=== PATIENT | male | born 1960 | race Caucasian/White ===

== ENCOUNTER 2018-02-05 11:31 | Emergency (ER) | payer BC, SELFPAY ==
[2018-02-05 11:31] VITALS: BP 145/82; PULSE 94; RESP 20; TEMP 36.7; O2SAT 99; BMI 22.0
--- NOTE | 2018-02-05 12:07 | ED.VISSUMM ---
- ER Visit Summary Date of Service: 02/05/18 Chief Complaint: Back pain History of Present Illness: The patient is a 57 M who presents with back pain that has been getting worse over the past 5 days. Patient states he was doing some lifting and noticed that the pain started after that. Patient denies any paresthesias or weakness. Patient states the pain does radiate to his thighs at times. Patient denies any bowel or bladder changes. Patient denies any saddle anesthesia. Patient states his pain is a constant ache but is sharp with certain movements. Patient states that his pain improves with rest. Patient has been using ice and heat with minimal relief. Patient states he has been taking ibuprofen with some relief. Physical Examination: Vital signs are stable. Patient is afebrile. Patient is in no acute distress. Musculoskeletal exam reveals tenderness over the right lumbar paraspinal muscles. There is no midline tenderness. There is no bony crepitance or step-off noted. Range of motion was limited all motions of the lumbar spine secondary to pain. Strength is 5/5 bilaterally in the lower extremities. Deep tendon reflexes are 2+/4 bilaterally. Straight leg raising produced back pain in the right lower lumbar area at approximately 30 degrees. There is no radicular pain. There is no pain with straight leg raising on the left. The remaining physical exam is within normal limits. Emergency Department Course and Treatment: Patient was given injections of Toradol and Norflex here. Patient was given prescriptions for meloxicam and Flexeril. Patient was instructed to use ice to the area. Patient was instructed to follow-up with his primary care physician in 5-7 days. Patient understood and was agreeable with the plan. All questions were answered. Disposition: Discharge home Impression: Lumbosacral strain This note was generated with [employer] dictation software. It may contain incorrect words, spelling, and punctuation that were not noted in review of the chart prior to signing ED Disposition - Plan for ED Patient: Disposition: Home or Assisted Living Chief Complaint: Back Diagnosis: Lumbosacral strain Instructions: ED Sprain Strain Lumbar Prescriptions: Cyclobenzaprine [Flexeril] 10 mg PO QHS PRN PRN #10 tab PRN Reason: Muscle Spasm Meloxicam [Mobic] 15 mg PO DAILY #10 tab Referrals: Jose Kumar MD [Primary Care Provider] -
[2018-02-05] MEDS: Ketorolac 60 MG/2 ML Vial IM (12:39)
[2018-02-05] MEDS: Orphenadrine 60 MG/2 ML Ampul IM (12:39)
[2018-02-05 13:01] VITALS: BP 140/86; PULSE 80; RESP 18; O2SAT 97
== END 2018-02-05 13:03 | disposition home or self-care (01) ==
LOC: ED 12:39
PROVIDERS: Emergency Provider Emergency Medicine; Family Provider Family Medicine; PCP Family Medicine
DX: S39.012A Strain of muscle, fascia and tendon of lower back, initial encounter (principal); I10 Essential (primary) hypertension; Z85.46 Personal history of malignant neoplasm of prostate; Z72.0 Tobacco use; Z79.899 Other long term (current) drug therapy; X50.0XXA Overexertion from strenuous movement or load, initial encounter; Y93.89 Activity, other specified; Y92.89 Other specified places as the place of occurrence of the external cause; Y99.8 Other external cause status
CPT/HCPCS: 96372; 99282

== ENCOUNTER 2018-05-30 11:04 | Emergency (ER) | payer BC, SELFPAY ==
[2018-05-30 11:05] VITALS: BP 162/80; PULSE 81; RESP 18; TEMP 36.6; O2SAT 98; BMI 22.7
--- NOTE | 2018-05-30 11:12 | ED.VIS.GEN ---
History of Present Illness Chief Complaint: Complaint Detail of Chief Complaint: Hematuria Informant: Patient, Significant Other Onset: - - 2 episodes on Tuesday. Episode on Tuesday several episodes past 24 hours with clots. He is unsure whether he is emptying his bladder completely Context: Sudden Onset Timing: Intermittent Quality: Hematuria Location: Current Severity: Moderate Maximum Severity: Moderate Worsened by: History of prostate cancer status post radiation Relieved by: Nothing Associated Symptoms: Nothing Narrative: Patient middle-aged male who presents with gross hematuria that started Tuesday. He states occasionally have 1 or 2 drops of blood, which he was told may be normal secondary to radiation therapy for prostate cancer. He denies fever, chills night sweats. Denies weight gain or weight loss. Denies dysuria, frequency, urgency. He denies any abdominal, pelvic or low back pain. He denies saddle paresthesia or anesthesia. He is on no anticoagulant. He denies bruising easily. Past Medical History - Allergies and Home Meds Allergies/Adverse Reactions: Allergies No Known Allergies Allergy (Verified 05/30/18 11:06) Primary Care Physician: Jose Kumar MD [Primary Care Provider] - Prior records reviewed: Yes Surgical History: - - Radiation prostate Lives: Spouse/ Significant Other Smoking Status: Current every day smoker Alcohol: None Drugs: None Review of Systems General: Denies: Chills, Fever, Sweats Eyes: Denies: Visual changes - bilaterally, Blurred Vision - bilaterally, Diplopia ENT: Denies: Bilateral ear pain, Rhinorrhea, Sore throat Cardiovascular: Denies: Chest pain, Palpitations Respiratory: Denies: Dyspnea, Cough, Dyspnea on exertion Gastrointestinal: Denies: Abdominal pain, Nausea, Vomiting, Diarrhea, Melena, Hematochezia Genitourinary: Reports: Hematuria. Denies: Dysuria, Frequency Musculoskeletal: Denies: Myalgias, Arthralgias, Back pain, Extremity Pain Skin: Denies: Rash, Wounds Neurological: Denies: Headache, Weakness, Numbness Hematologic: Denies: Easy bruising, Easy bleeding Physical Exam Vital Signs/Narrative: Vital Signs Temp Pulse Resp BP Pulse Ox 05/30/18 11:05 98 F 81 18 162/80 H 98 Inital Vital Signs reviewed: Yes General: Well nourished, Well developed, No Acute Distress Head: Normocephalic, Atraumatic Eyes: Perrl, EOMI. Negative for: Pale conjunctiva, Scleral icterus ENT: Moist mucous membranes, No rhinorrhea Neck: Supple, Nontender, No lymphadenopathy, No JVD Cardiovascular: Regular rate, Regular rhythm, No murmurs, Normal S1, Normal S2 Respiratory: No distress, CTA bilaterally, Chest nontender Abdomen: Soft, Nontender, Nondistended, Normal bowel sounds, No masses. Negative for: Hepatomegaly, Splenomegaly Skin: Normal color, No rash. Negative for: Cyanosis, Jaundice, Pallor Neurological: Alert, Oriented x3, Cranial nerves II-XII grossly intact, Normal Strength, Normal Sensation Psychological: Normal affect, Normal Mood Diagnostic/Tx/Re-eval - Medical Decision Making CBC was obtained to assess white count and H&H since he reports bleeding started 4 days ago. UA was obtained to evaluate for evidence of infection. Bladder scan was performed. If there is a plan of urinary bladder three-way will be placed and will initiate continuous irrigation since patient is reporting clots. Nurse informed me that bladder scan revealed 250 cc of urine. Will check post void residual. If able to void will not need placement of catheter. ED Disposition - Plan for ED Patient: Disposition: Home or Assisted Living Diagnosis: Asymptomatic microscopic hematuria, History of prostate cancer Instructions: ED Hematuria Referrals: Jose Kumar MD [Primary Care Provider] - Additional Instructions: Follow-up with your urologist Dr. Jn Mcgowan
[2018-05-30 11:34] LABS: Absolute Lymphocyte Count 1.98 X10^3/ul (0.83-4.51); Absolute Neutrophil Count 6.3 X10^3/uL (2.0-7.7); Basophil# 0.03 X10^3/uL; Basophil% 0.3 % (0-1); Eosinophils% 3.1 % (0-5); Hematocrit 43.7 % (40-54); Hemoglobin 14.9 g/dl (13.0-16.5); Lymphocyte # 1.98 X10^3/ul (4.0); Lymphocyte % 20.4 % (19-41); Mean Corp Hgb Conc 34.1 g/gl (32-36); Mean Corpuscular Volume 96.7 fL (80-94); Mean Platelet Vol. 10.9 fl (6.2-12.0); Monocyte# 1.13 X10^3/uL; Monocyte% 11.6 % (0-10); Neutrophil # 6.25 X10^3/uL (2.7-7.7); Neutrophil % 64.5 % (47-70); POSITIVE COUNT NO; POSITIVE DIFFERENTIAL NO; POSITIVE MORPHOLOGY NO; Platelet Count 213 K/mm3 (150-450); RBC Distribution Width CV 13.6 % (11.6-14.6); RBC Distribution Width SD 47.3 fl (35.1-43.9); Red Blood Count 4.52 M/mm3 (4.6-6.2); White Blood Count 9.7 K/mm3 (4.4-11.0)
[2018-05-30 12:17] LABS: Mucous, Urine 0 SEEN /hpf (<or=2+); Squamous Epithelial Cells - UA 0 SEEN /hpf (0-5); White Blood Cells 0 SEEN /hpf (0-5)
[2018-05-30 12:25] LABS: Glucose, Dipstick Normal (Normal); Ketone-Dipstick Negative (Negative); Leukocyte Esterase-Dipstick Negative /ul (Negative); Nitrite-Dipstick Negative (Negative); Occult Blood-Urine 250 /ul (Negative); Protein-Dipstick 30 mg/dl (Negative); Urine Bilirubin Dipstick Negative (Negative); Urine Clarity Sl. Cloudy (Clear); Urine Urobilinogen Normal (Normal)
[2018-05-30 12:30] LABS: Color, Urine SEE COMMENT BELOW (Yellow)
[2018-05-30 12:48] LABS: Bacteria RARE /hpf (None Seen); Red Blood Cells-Urine 5-10 SEEN /hpf (0-5)
[2018-05-30 13:07] VITALS: RESP 18
[2018-05-30 14:15] VITALS: BP 143/83; PULSE 72; RESP 16; O2SAT 96
== END 2018-05-30 14:16 | disposition home or self-care (01) ==
PROVIDERS: Emergency Provider Emergency Medicine; Family Provider Family Medicine; PCP Family Medicine
DX: R31.21 Asymptomatic microscopic hematuria (principal); Z85.46 Personal history of malignant neoplasm of prostate; F17.200 Nicotine dependence, unspecified, uncomplicated; Z79.899 Other long term (current) drug therapy
CPT/HCPCS: 81001; 85025; 99283

== ENCOUNTER 2018-08-17 09:02 | Emergency (ER) | payer BC, SELFPAY ==
[2018-08-17 09:03] VITALS: BP 157/89; PULSE 92; RESP 18; TEMP 36.6; O2SAT 99; BMI 21.9
--- NOTE | 2018-08-17 09:18 | ED.DCSUM_ITS ---
History of Present Illness Chief Complaint: Complaint Detail of Chief Complaint: Gross hematuria with clots Informant: Patient Onset: Yesterday Context: Sudden Onset Timing: Continuous Quality: Gross hematuria with clots Location: Not applicable Current Severity: Moderate Maximum Severity: Moderate Worsened by: Radiation cystitis Relieved by: Nothing Associated Symptoms: Nausea and central low back pain Narrative: Patient is a 58-year-old male who was seen May 2018 for hematuria. He underwent surgery at [facility] July 18. He was found to have radiation cystitis. Patient reports no problems post surgery until yesterday. Recommendation was hyperbaric treatment. He is making arrangements to get hyperbaric treatment. Patient denies fever, chills night sweats. He is on no antiplatelet or anticoagulant. He has no other complaints. Prior similar symptoms: Yes Recent Illness/Hospitalization: Yes - Past Medical History (1) Chronic radiation cystitis Status: Chronic (2) History of prostate cancer Status: Resolved Past Medical History - Allergies and Home Meds Allergies/Adverse Reactions: Allergies No Known Allergies Allergy (Verified 08/17/18 09:05) Primary Care Physician: Jose Kumar MD [Primary Care Provider] - Prior records reviewed: Yes Surgical History: - - Radiation prostate Lives: Spouse/ Significant Other Smoking Status: Current every day smoker Drugs: None Review of Systems General: Denies: Chills, Fever, Malaise, Subjective, Sweats, Weight loss Cardiovascular: Denies: Chest pain, Palpitations Respiratory: Denies: Dyspnea, Cough, Dyspnea on exertion Gastrointestinal: Denies: Abdominal pain, Nausea, Vomiting, Diarrhea, Melena, Hematochezia Genitourinary: Reports: Hematuria, Frequency. Denies: Dysuria Musculoskeletal: Reports: Back pain. Denies: Myalgias, Arthralgias, Neck pain, Swelling, Extremity Pain, -, - Skin: Denies: Rash, Wounds Hematologic: Denies: Easy bruising, Easy bleeding Physical Exam Vital Signs/Narrative: Vital Signs Temp Pulse Resp BP Pulse Ox 08/17/18 09:03 97.9 F 92 18 157/89 H 99 General: Well nourished, Well developed, No Acute Distress Head: Normocephalic, Atraumatic Eyes: Perrl, EOMI. Negative for: Pale conjunctiva, Scleral icterus, - ENT: Moist mucous membranes, No rhinorrhea Neck: Supple, Nontender Cardiovascular: Regular rate, Regular rhythm, No murmurs, Normal S1, Normal S2 Respiratory: No distress, CTA bilaterally, Chest nontender Abdomen: Soft, Nontender, Nondistended, Normal bowel sounds, No masses Rectal: Deferred Back: Nontender, Normal Inspection. Negative for: CVA tenderness Extremities: Nontender, No edema Skin: Normal color, No rash, No Trauma. Negative for: Cyanosis, Diaphoresis, Jaundice Neurological: Alert, Oriented x3, Cranial nerves II-XII grossly intact, Normal Strength, Normal Sensation, Normal Gait Psychological: Normal affect, Normal Mood Diagnostic/Tx/Re-eval Laboratory Results 08/17/18 08/17/18 09:45 09:45 WBC 8.4 RBC 4.57 L Hgb 15.0 Hct 43.0 MCV 94.1 H MCH 32.8 H MCHC 34.9 RDW 13.5 RDW Differential 44.8 H Plt Count 202 MPV 10.8 Sodium 141 Potassium 3.7 Chloride 108 H Carbon Dioxide 25.0 Anion Gap 8 BUN 7 Creatinine 0.84 Estim Creat Clear Calc 85.05 Est GFR (MDRD) Af Amer 120 Est GFR (MDRD) Non-Af 100 BUN/Creatinine Ratio 8.3 L Glucose 169 H Calcium 8.6 - Medical Decision Making With history of radiation cystitis and gross hematuria with clots three-way was placed for irrigation. Will obtain CBC to assess H&H compared to prior and BMP to evaluate renal function. Will contact his urologist at [facility] once lab results have returned and reviewed as well as results of irrigation. After 1.5 of 3 L irrigant urine is slightly tinged red. Will contact his urologist to determine if he would like [place] to remain in place or discharge since there was no urinary retention. And when he would like patient to follow- up. Patient urologist did not return call, Dr. Mcgowan. She was informed by recommendation is to leave Liz[place] in since he has bright red blood again. Patient wishes to have it removed. He understands he may return and require reinsertion and understands risk benefits. ED Disposition - Plan for ED Patient: Disposition: Home or Assisted Living Diagnosis: Hematuria, gross, Chronic radiation cystitis Instructions: ED Hematuria Referrals: Jose Kumar MD [Primary Care Provider] - Additional Instructions: Call your urologist for follow-up.
[2018-08-17 09:54] LABS: Mean Corp Hgb Conc 34.9 g/gl (32-36); Mean Corpuscular Hgb 32.8 pg (27.0-32.0); Mean Corpuscular Volume 94.1 fL (80-94); Mean Platelet Vol. 10.8 fl (6.2-12.0); Platelet Count 202 K/mm3 (150-450); RBC Distribution Width CV 13.5 % (11.6-14.6); RBC Distribution Width SD 44.8 fl (35.1-43.9); Red Blood Count 4.57 M/mm3 (4.6-6.2); White Blood Count 8.4 K/mm3 (4.4-11.0)
[2018-08-17 09:58] LABS: Scan Indicated on CBC? Y/N NO
[2018-08-17 10:08] LABS: Anion Gap 8 (5-15); BUN 7 mg/dL (7-18); BUN/Creat Ratio 8.3 RATIO (10-20); Calcium,Total 8.6 mg/dL (8.5-10.1); Chloride 108 mmol/L (98-107); Creatinine, Serum 0.84 mg/dL (0.70-1.30); EST Glomerular Filtration Rate 100 mL/min (>60); Est Glom Filt Rate - Afr Amer 120 mL/min (>60); Estimated Creatinine Clearance 85.05 ml/min; Glucose 169 mg/dL (74-106); Potassium 3.7 mmol/L (3.5-5.1); Sodium Level 141 mmol/L (136-145)
[2018-08-17] MEDS: Lidocaine Jelly 2% 20 ML Syringe (URO-JET) 20 APPLIC TOPICAL (10:12)
[2018-08-17 15:00] VITALS: BP 139/81; PULSE 86; RESP 16; O2SAT 96
== END 2018-08-17 15:01 | disposition home or self-care (01) ==
PROVIDERS: Emergency Provider Emergency Medicine; Family Provider Family Medicine; PCP Family Medicine
DX: N30.41 Irradiation cystitis with hematuria (principal); Z85.46 Personal history of malignant neoplasm of prostate; F17.200 Nicotine dependence, unspecified, uncomplicated
CPT/HCPCS: 51702; 80048; 85027; 99284; A4216

== ENCOUNTER 2018-09-28 15:23 | Outpatient (RCR) | payer BC, SELFPAY ==
[2018-09-28 16:10] VITALS: BP 154/88; PULSE 62; RESP 16; TEMP 37.3; BMI 21.9
--- NOTE | 2018-09-28 16:55 | HBO.CON.PC_ITS ---
(1) Irradiation cystitis with hematuria Status: Chronic Code(s): N30.41 - Irradiation cystitis with hematuria (2) Chronic radiation cystitis Status: Chronic Code(s): N30.40 - Irradiation cystitis without hematuria (3) Hypertension Status: Chronic Code(s): I10 - Essential (primary) hypertension (4) History of prostate cancer Status: Resolved Code(s): Z85.46 - Personal history of malignant neoplasm of prostate History of Present Illness Date of Service: 09/28/18 Presenting Chief Complaint: Chronic radiation cystitis The patient is a 58 year old M who presents to the [facility] to evaluate the possibility of initiating hyperbaric oxygen therapy for treatment of chronic radiation cystitis. Patient has a past medical history that is significant for radiation cystitis, radical prostatectomy, and hypertension. Regarding patient's hypertension, patient states it is well controlled on metoprolol and amlodipine. Patient states he has no symptoms of hypo-or hypertension. Regarding patient's radiation cystitis, he was diagnosed in July 2017 by his urologist who recommended HBO therapy. In August 2018 he was seen in the ER for blood in his urine and urinary frequency. Regarding patient's radical prostatectomy, patient had a radical prostatectomy in 2013 and 39 rounds of radiation treatments in 2014 and had no chemotherapy treatments. Radiation was done by Dr. Thomas. Patient states that he currently smokes 1 pack/day and has a 12-mbks-hugu history. Patient states he has not had a recent chest x-ray, but he denies any breathing difficulties at this time in any history of COPD or asthma. Patient's primary care is Dr. Kumar. Patient was originally seen for an HBO consult at [facility] and he states is insurance approved him for 20 HBO treatments. Patient decided to try [facility] because it is closer to his home and would work better with his work schedule. Patient states he does not have any open wounds at this time. Patient denies any current symptoms. Denies blood in the urine, urinary frequency, abdominal pain, shortness of breath, chest pain, fatigue, nausea, vomiting, syncope or near syncopal episodes, and fever or chills. Some records were not available for review, so information provided above is per patient [] Past Medical History Chronic Problems Chronic radiation cystitis (Chronic) Hypertension (Chronic) Irradiation cystitis with hematuria (Chronic) Allergies/Adverse Reactions: Allergies No Known Allergies Allergy (Verified 08/17/18 09:05) Home Medications: Ambulatory Orders Medication Instructions Recorded Amlodipine [Norvasc] 10 mg PO DAILY 02/08/16 Metoprolol Succinate 50 mg PO DAILY 02/08/16 Lives: Spouse/ Significant Other Smoking Status: Heavy Smoker (>10/day) Review of Systems Constitutional: Denies: Chills, Fever, Weight Change Eyes: Denies: Pain, Vision Change HEENT: Denies: Difficulty Hearing, Difficulty Swallowing, Sinus Congestion Cardiovascular: Denies: Chest Pain, Palpitations Respiratory: Denies: Cough, Shortness of Breath Gastrointestinal: Denies: Diarrhea, Nausea, Vomiting Genitourinary: Reports: Frequency, Hematuria - History of hematuria, not currently experiencing. Denies: Dysuria Endocrine: Denies: Heat/ Cold Intolerance, Polydipsia, Polyuria Hematologic/ Lymphatic: Denies: Easy Bruising, Easy Bleeding - Physical Exam Vital Signs Temp Pulse Resp BP 99.1 F 62 16 154/88 H 09/28/18 16:10 09/28/18 16:10 09/28/18 16:10 09/28/18 16:10 General: Alert, Oriented x3, Cooperative, No apparent distress HEENT: Atraumatic, PERRLA, EOMI, Normocephalic, TM's Clear Oral: Moist Mucosa Neck: Supple, No JVD, Negative Carotid Bruits Lungs: Clear to auscultation, Normal air movement, No rhonchi, No wheeze, No rales Cardiovascular: Regular rate, Regular Rhythm, No murmurs Abdomen: Soft, Non Tender Extremities: No clubbing, No cyanosis, No edema, Capillary Refill Less than 3 Seconds Skin: No rashes, No breakdown Musculoskeletal: No Tenderness to Palpation of Joints or Extremities, No Muscle Wasting Lymphatic: No Cervical, Supraclavicular, or Inguinal Adenopathy Neurological: Neuro grossly intact Psych/Mental Status: Normal Affect, Appropriate, Alert and oriented to time, place, person, mood and affect Assessment/Plan EMBER WILSON is an appropriate candidate for hyperbaric oxygen therapy. Hyperbaric Oxygen Therapy would be an essential adjunct in the resolution and treatment of this patient's presenting problem. This patient has sufficient physiologic and psychological stamina to undergo the rigors of hyperbaric oxygen therapy. As such, I recommend the following: Hyperbaric Oxygen Treatments at 2.0 SMITA in 100% Oxygen for 90 minutes per treatment, for 40 treatments. I have discussed the possible benefits of hyperbaric oxygen therapy with this patient. I have also presented and described the risks, including: air gas embolism, pneumothorax, central nervous system and pulmonary oxygen toxicity, flash pulmonary edema, hypoglycemia, reversible visual refractive changes, ear and sinus se-trauma, and confinement anxiety. The patient has verbalized understanding of these risks, and is still wanting to undergo hyperbaric oxygen therapy. The patient understands the significant time and transportation commitment involved in daily treatments of up to two hours duration and has stated that they are willing to commit to this therapy. Some records were not available for review at this time. Will request records from his primary care provider and his urologist. We will also obtain chest x- ray and EKG prior to initiating HBO therapy. - HBOT Diagnosis - - Irradiation cystitis with hematuria N30.41 Code Visit Office Visits / Consults: [id number] OV L4 Est
== END 2018-10-11 23:59 ==
LOC: WC 15:23
PROVIDERS: Family Provider Family Medicine; PCP Family Medicine; Visit Provider Nurse Practitioner Family
DX: N30.41 Irradiation cystitis with hematuria (principal); Y84.2 Radiological procedure and radiotherapy as the cause of abnormal reaction of the patient, or of later complication, without mention of misadventure at the time of the procedure; I10 Essential (primary) hypertension; Z85.46 Personal history of malignant neoplasm of prostate; Z79.899 Other long term (current) drug therapy; F17.200 Nicotine dependence, unspecified, uncomplicated
CPT/HCPCS: 99202; G0463

== ENCOUNTER → 2018-10-02 | Outpatient (CLI) | payer BC, SELFPAY ==
[2018-09-28 16:10] VITALS: BMI 21.9
--- NOTE | 2018-10-02 16:14 | RAD_ITS ---
STUDY: X-RAY CHEST REASON FOR EXAM: Male, 58 years old. Prostate cancer, bladder surgery TECHNIQUE: Two view of the chest was performed COMPARISON: None. FINDINGS: The lungs are hyperinflated. There is asymmetric density in the right hilum and infrahilar region. There is no pneumothorax, pulmonary edema, cardiomegaly or pleural effusions. There is pectus excavatum. Otherwise osseous structures are intact. RAD/Chest PA and Lateral IMPRESSION: 1. Right perihilar asymmetric opacity, possibly related to pectus excavatum and the spinal soft tissue redistribution. 2. Mild emphysema. 3. If cancer staging of the chest is desired CT of the chest is the study of choice. Plain films are insufficient modality for cancer staging. Electronically Signed: Cata Abarca, at 18:15 EDT Tel , Service support ,
--- NOTE | 2018-10-02 16:15 | EKG12_ITS ---
Test Reason : HYPERBARIC Blood Pressure : / mmHG Vent. Rate : 071 BPM Atrial Rate : 071 BPM P-R Int : 162 ms QRS Dur : 082 ms QT Int : 412 ms P-R-T Axes : 077 052 072 degrees QTc Int : 447 ms Normal sinus rhythm Possible Left atrial enlargement Borderline ECG Confirmed by CECILIA WILEY, CHE ([id number]), editor producer JED CASTELLANOS ([id number]) on 10/03/2018 1:49:10 PM Referred By: Jose Cartwright Confirmed By:CHE BROOKS MD
== END | disposition home or self-care (01) ==
LOC: RAD 16:13
PROVIDERS: Family Provider Family Medicine; PCP Family Medicine; Referring Provider Nurse Practitioner Family; Visit Provider Nurse Practitioner Family
DX: N30.40 Irradiation cystitis without hematuria (principal)
CPT/HCPCS: 71046; 93005

== ENCOUNTER 2018-12-11 14:15 | Outpatient (RCR) | payer BC, SELFPAY ==
[2018-12-05 16:34] VITALS: BP 150/82; BP 152/79; PULSE 70; PULSE 73; RESP 16; TEMP 37.1; TEMP 37.2
--- NOTE | 2018-12-05 16:47 | PCM.HBO.PN ---
History of Present Illness Date of Service: 12/05/18 Presenting Chief Complaint: Chronic radiation cystitis EMBER WILSON is a 58 year old currently undergoing hyperbaric oxygen therapy for chronic radiation cystitis. Progress: Today's session of hyperbaric oxygen therapy represents the patient's first such session of a planned 40 sessions. Tolerance of hyperbaric oxygen therapy: Hyperbaric oxygen therapy was administered per our facility's protocol. Patient tolerated hyperbaric oxygen therapy well, without complaints or complications. He did experience mild discomfort in his left ear initially while going to depth, which quickly and subsequently solved, and presented no further problems. Upon emergence from the hyperbaric chamber, the patient's vital signs remained stable. He was discharged in good condition. Examination of the patient's tympanic membranes otoscopic William, revealed slight erythema involving the left tympanic membrane. Hyperbaric oxygen therapy was administered at 2 steph for a total of 90 minutes. Past Medical History Chronic Problems Chronic radiation cystitis (Chronic) Hypertension (Chronic) Irradiation cystitis with hematuria (Chronic) Allergies/Adverse Reactions: Allergies No Known Allergies Allergy (Verified 08/17/18 09:05) Home Medications: Ambulatory Orders Medication Instructions Recorded Amlodipine [Norvasc] 10 mg PO DAILY 02/08/16 Metoprolol Succinate 50 mg PO DAILY 02/08/16 Smoking Status: Heavy Smoker (>10/day) Physical Exam Vital Signs Temp Pulse Resp BP 98.7 F 73 16 152/79 H 12/05/18 16:34 12/05/18 16:34 12/05/18 16:34 12/05/18 16:34 General: Alert, Oriented x3, Cooperative, No apparent distress, Well developed, Well nourished HEENT: Atraumatic, PERRLA, EOMI, Normocephalic Lungs: Normal air movement Psych/Mental Status: Normal Affect, Appropriate, Alert and oriented to time, place, person, mood and affect Assessment/Plan The patient appeared to tolerate hyperbaric oxygen therapy well, but for a very transient episode of left ear barotrauma. The patient appeared to accommodate to the barotrauma well, though his left tympanic membrane was slightly erythematous following treatment. Patient is to return for his second such hyperbaric oxygen therapy session in 48 hours. If additional barotrauma is encountered, it is likely that the patient will be referred for evaluation by the ENT service for possible tube placement.
[2018-12-07 14:58] VITALS: BP 138/85; BP 147/88; PULSE 80; PULSE 88; RESP 18; TEMP 37.1; TEMP 37.2
--- NOTE | 2018-12-07 17:15 | PCM.HBO.PN ---
History of Present Illness Date of Service: 12/07/18 Presenting Chief Complaint: Chronic radiation cystitis EMBER WILSON is a 58 year old currently undergoing hyperbaric oxygen therapy for chronic radiation cystitis. Progress: Today's session of hyperbaric oxygen therapy represents the patient's 2nd such session of a planned 40 sessions. Tolerance of hyperbaric oxygen therapy: Hyperbaric oxygen therapy was administered per our facility's protocol. Patient tolerated hyperbaric oxygen therapy well, without complaints or complications. He did experience mild discomfort in his left ear at last visit, however, no discomfort today. Upon emergence from the hyperbaric chamber, the patient's vital signs remained stable. He was discharged in good condition. Examination of the patient's tympanic membranes revealed slight erythema involving the left tympanic membrane. Hyperbaric oxygen therapy was administered at 2 steph for a total of 90 minutes. Past Medical History Chronic Problems Chronic radiation cystitis (Chronic) Hypertension (Chronic) Irradiation cystitis with hematuria (Chronic) Allergies/Adverse Reactions: Allergies No Known Allergies Allergy (Verified 08/17/18 09:05) Home Medications: Ambulatory Orders Medication Instructions Recorded Amlodipine [Norvasc] 10 mg PO DAILY 02/08/16 Metoprolol Succinate 50 mg PO DAILY 02/08/16 Smoking Status: Heavy Smoker (>10/day) Physical Exam Vital Signs Temp Pulse Resp BP 99.0 F 80 18 138/85 H 12/07/18 14:58 12/07/18 14:58 12/07/18 14:58 12/07/18 14:58 General: Alert, Oriented x3, Cooperative, No apparent distress HEENT: Atraumatic, PERRLA, Normocephalic, TM's Clear, EAC Clear, - - slight erythema to left tm, intact no bulging Lungs: Clear to auscultation, Normal air movement Cardiovascular: Regular rate, Regular Rhythm, Normal S1, Normal S2, No murmurs Psych/Mental Status: Normal Affect, Appropriate, Alert and oriented to time, place, person, mood and affect Assessment/Plan The patient appeared to tolerate hyperbaric oxygen therapy well today. Given his ear discomfort at his last HBO session, and the mild erythema present instructed patient on the use of NSAIDs and Flonase. Patient did tolerate HBO therapy well today. He will continue with his scheduled HBO treatments per his initial plan of care.
[2018-12-08 14:40] VITALS: BP 147/77; BP 150/78; PULSE 68; PULSE 84; RESP 18; TEMP 36.8; TEMP 37.5
--- NOTE | 2018-12-08 16:26 | PCM.HBO.PN ---
History of Present Illness Date of Service: 12/08/18 Presenting Chief Complaint: Chronic radiation cystitis EMBER WILSON is a 58 year old currently undergoing hyperbaric oxygen therapy for chronic radiation cystitis. Progress: Today's session of hyperbaric oxygen therapy represents the patient's 3rd such session of a planned 40 sessions. Tolerance of hyperbaric oxygen therapy: Hyperbaric oxygen therapy was administered per our facility's protocol. Patient tolerated hyperbaric oxygen therapy well, without complaints or complications. Upon emergence from the hyperbaric chamber, the patient's vital signs remained stable. He was discharged in good condition. Examination of the patient's tympanic membranes revealed slight erythema involving the left tympanic membrane. Hyperbaric oxygen therapy was administered at 2 steph for a total of 90 minutes. Past Medical History Chronic Problems Chronic radiation cystitis (Chronic) Hypertension (Chronic) Irradiation cystitis with hematuria (Chronic) Allergies/Adverse Reactions: Allergies No Known Allergies Allergy (Verified 08/17/18 09:05) Home Medications: Ambulatory Orders Medication Instructions Recorded Amlodipine [Norvasc] 10 mg PO DAILY 02/08/16 Metoprolol Succinate 50 mg PO DAILY 02/08/16 Lives: Spouse/ Significant Other Smoking Status: Heavy Smoker (>10/day) Tobacco Use: Cigarettes Alcohol: Occasional Drugs: None Physical Exam Vital Signs Temp Pulse Resp BP 99.5 F H 84 18 150/78 H 12/08/18 14:40 12/08/18 14:40 12/08/18 14:40 12/08/18 14:40 General: Alert, Oriented x3, Cooperative, No apparent distress Psych/Mental Status: Normal Affect, Appropriate Assessment/Plan Active Problems Chronic radiation cystitis (Chronic) Irradiation cystitis with hematuria (Chronic) The patient appeared to tolerate hyperbaric oxygen therapy well today. He has been using NSAIDs and Flonase and antihistamine. Patient did tolerate HBO therapy well today. He will continue with his scheduled HBO treatments per his initial plan of care.
[2018-12-11 15:51] VITALS: BP 144/78; BP 168/88; PULSE 72; PULSE 77; RESP 18; TEMP 36.6; TEMP 37.5
--- NOTE | 2018-12-11 16:35 | PCM.HBO.PN ---
History of Present Illness Date of Service: 12/11/18 Presenting Chief Complaint: Chronic radiation cystitis EMBER WILSON is a 58 year old male currently undergoing hyperbaric oxygen therapy for chronic radiation cystitis. Progress: Today's session of hyperbaric oxygen therapy represents the patient's 4th such session of a planned 40 sessions. Tolerance of hyperbaric oxygen therapy: Hyperbaric oxygen therapy was administered per our facility's protocol. Patient tolerated hyperbaric oxygen therapy well, without complaints or complications. Upon emergence from the hyperbaric chamber, the patient's vital signs remained stable. He was discharged in good condition. Today's treatment was administered at 2 steph for a total of 120 minutes. Past Medical History Chronic Problems Chronic radiation cystitis (Chronic) Hypertension (Chronic) Irradiation cystitis with hematuria (Chronic) Allergies/Adverse Reactions: Allergies No Known Allergies Allergy (Verified 08/17/18 09:05) Home Medications: Ambulatory Orders Medication Instructions Recorded Amlodipine [Norvasc] 10 mg PO DAILY 02/08/16 Metoprolol Succinate 50 mg PO DAILY 02/08/16 Lives: Spouse/ Significant Other Smoking Status: Heavy Smoker (>10/day) Tobacco Use: Cigarettes Alcohol: Occasional Drugs: None Physical Exam Vital Signs Temp Pulse Resp BP 99.5 F H 77 18 144/78 H 12/11/18 15:51 12/11/18 15:51 12/11/18 15:51 12/11/18 15:51 General: Alert, Oriented x3, Cooperative, No apparent distress, Well developed, Well nourished HEENT: Atraumatic, PERRLA, EOMI, Normocephalic Lungs: Normal air movement Psych/Mental Status: Normal Affect, Appropriate, Alert and oriented to time, place, person, mood and affect Assessment/Plan The patient appears to be tolerating hyperbaric oxygen therapy well, which will be continued as per the patient's medical plan.
== END 2018-12-11 23:59 ==
LOC: WC 14:15
PROVIDERS: Family Provider Family Medicine; PCP Family Medicine; Visit Provider Surgery
DX: N30.41 Irradiation cystitis with hematuria (principal); Y84.2 Radiological procedure and radiotherapy as the cause of abnormal reaction of the patient, or of later complication, without mention of misadventure at the time of the procedure; I10 Essential (primary) hypertension; Z79.899 Other long term (current) drug therapy; F17.210 Nicotine dependence, cigarettes, uncomplicated
CPT/HCPCS: 99183; G0277

== ENCOUNTER 2018-12-27 10:58 | Emergency (ER) | payer BC, SELFPAY ==
[2018-12-27 11:00] VITALS: BP 159/79; PULSE 84; RESP 16; TEMP 36.4; O2SAT 98; BMI 22.6
[2018-12-27 12:15] VITALS: BP 144/80
--- NOTE | 2018-12-27 12:19 | ED.VISSUMM ---
- ER Visit Summary Date of Service: 12/27/18 Chief Complaint: Hypertension History of Present Illness: The patient is a 58 M who presents today for hypertension. His blood pressure was checked at work and it was 172/97. He says he has a history of high blood pressure and takes metoprolol and amlodipine regularly. He denies new dosages, missing dosages, or other complaints issues. He felt slightly lightheaded but otherwise has no symptoms. He does attend hyperbaric therapy for radiation cystitis. He says his blood pressure gets checked daily. His blood pressure typically runs as high as 150/190. Physical Examination: Afebrile and vital signs unremarkable. Blood pressure 159/79. HEENT exam unremarkable. Cranial nerves grossly intact. Normal strength and sensation grossly. Heart regular. Lungs clear. Test Results: None performed Emergency Department Course and Treatment: Repeat blood pressure was 144/80. No indication at this point to perform any diagnostic testing. He has no objective normal findings, and he reports lightheadedness which has resolved. Patient was advised that blood pressure can fluctuate throughout the day. He should have his blood pressure rechecked by his physician who may change his regimen. There is no indication to increase his medication at this point, risks were discussed. Treatment Plan: As above Disposition: Discharge Impression: 1. Hypertension established This note was generated with [employer] dictation software. It may contain incorrect words, spelling, and punctuation that were not noted in review of the chart prior to signing ED Disposition - Plan for ED Patient: Referrals: Jose Kumar MD [Primary Care Provider] -
--- NOTE | 2018-12-27 12:22 | ED.DEP ---
ED Disposition - Plan for ED Patient: Instructions: HYPERTENSION, Established Referrals: Jose Kumar MD [Primary Care Provider] -
[2018-12-27 12:35] VITALS: BP 144/80; PULSE 72; RESP 16; O2SAT 97
== END 2018-12-27 12:35 | disposition home or self-care (01) ==
LOC: ED 11:36
PROVIDERS: Emergency Provider Emergency Medicine; Family Provider Family Medicine; PCP Family Medicine
DX: I10 Essential (primary) hypertension (principal); Z85.46 Personal history of malignant neoplasm of prostate; Z72.0 Tobacco use; Z79.899 Other long term (current) drug therapy
CPT/HCPCS: 99282

== ENCOUNTER 2019-01-11 14:15 | Outpatient (RCR) | payer BC, SELFPAY ==
[2018-12-12 01:18] VITALS: BP 168/88; PULSE 72; RESP 18; TEMP 36.6
--- NOTE | 2018-12-12 14:39 | PCM.HBO.PN ---
History of Present Illness Date of Service: 12/12/18 Presenting Chief Complaint: Chronic radiation cystitis EMBER WILSON is a 58 year old male currently undergoing hyperbaric oxygen therapy for chronic radiation cystitis. Progress: Today's session of hyperbaric oxygen therapy represents the patient's 5th such session of a planned 40 sessions. Tolerance of hyperbaric oxygen therapy: Hyperbaric oxygen therapy was administered per our facility's protocol. Patient tolerated hyperbaric oxygen therapy well, without complaints or complications. Upon emergence from the hyperbaric chamber, the patient's vital signs remained stable. He was discharged in good condition. Today's treatment was administered at 2 steph for a total of 120 minutes. Past Medical History Chronic Problems Chronic radiation cystitis (Chronic) Hypertension (Chronic) Irradiation cystitis with hematuria (Chronic) Allergies/Adverse Reactions: Allergies No Known Allergies Allergy (Verified 08/17/18 09:05) Home Medications: Ambulatory Orders Medication Instructions Recorded Amlodipine [Norvasc] 10 mg PO DAILY 02/08/16 Metoprolol Succinate 50 mg PO DAILY 02/08/16 Smoking Status: Heavy Smoker (>10/day) Tobacco Use: Cigarettes Physical Exam Vital Signs Temp Pulse Resp BP 97.8 F 72 18 168/88 H 12/12/18 01:18 12/12/18 01:18 12/12/18 01:18 12/12/18 01:18 General: Alert, Oriented x3, Cooperative, No apparent distress HEENT: TM's Clear - right with small amount dark colored drainage, left slightly injected Lungs: Clear to auscultation, Normal air movement Cardiovascular: Regular rate, Regular Rhythm Psych/Mental Status: Normal Affect, Appropriate, Alert and oriented to time, place, person, mood and affect Assessment/Plan The patient appears to be tolerating hyperbaric oxygen therapy well, which will be continued as per the patient's medical plan.
[2018-12-12 15:09] VITALS: BP 138/81; PULSE 83; RESP 18; TEMP 37.4
[2018-12-13 14:48] VITALS: BP 151/79; PULSE 83; RESP 18; TEMP 37.2
--- NOTE | 2018-12-13 15:07 | PCM.HBO.PN ---
History of Present Illness Date of Service: 12/13/18 Presenting Chief Complaint: Chronic radiation cystitis EMBER WILSON is a 58 year old male currently undergoing hyperbaric oxygen therapy for chronic radiation cystitis. Progress: Today's session of hyperbaric oxygen therapy represents the patient's 6th such session of a planned 40 sessions. Tolerance of hyperbaric oxygen therapy: Hyperbaric oxygen therapy was administered per our facility's protocol. Patient tolerated hyperbaric oxygen therapy well, without complaints or complications. Upon emergence from the hyperbaric chamber, the patient's vital signs remained stable. He was discharged in good condition. Today's treatment was administered at 2 steph for a total of 120 minutes. Past Medical History Chronic Problems Chronic radiation cystitis (Chronic) Hypertension (Chronic) Irradiation cystitis with hematuria (Chronic) Allergies/Adverse Reactions: Allergies No Known Allergies Allergy (Verified 08/17/18 09:05) Home Medications: Ambulatory Orders Medication Instructions Recorded Amlodipine [Norvasc] 10 mg PO DAILY 02/08/16 Metoprolol Succinate 50 mg PO DAILY 02/08/16 Smoking Status: Heavy Smoker (>10/day) Tobacco Use: Cigarettes Physical Exam Vital Signs Temp Pulse Resp BP 98.9 F 83 18 151/79 H 12/13/18 14:48 12/13/18 14:48 12/13/18 14:48 12/13/18 14:48 General: Alert, Oriented x3, Cooperative, No apparent distress HEENT: Atraumatic, TM's Clear - small amount of rust colored cerumen right ear, left TM injected but non-painful Lungs: Clear to auscultation, Normal air movement Cardiovascular: Regular rate, Regular Rhythm Psych/Mental Status: Normal Affect, Appropriate, Alert and oriented to time, place, person, mood and affect Assessment/Plan The patient appears to be tolerating hyperbaric oxygen therapy well, which will be continued as per the patient's medical plan.
[2018-12-13 16:36] VITALS: BP 147/86; PULSE 68; RESP 18; TEMP 36.8
[2018-12-15 14:32] VITALS: BP 140/85; BP 149/80; PULSE 62; PULSE 85; RESP 18; TEMP 36.6; TEMP 36.9
--- NOTE | 2018-12-15 18:52 | PCM.HBO.PN ---
History of Present Illness Date of Service: 12/15/18 Presenting Chief Complaint: Chronic radiation cystitis EMBER WILSON is a 58 year old male currently undergoing hyperbaric oxygen therapy for chronic radiation cystitis. Progress: Today's session of hyperbaric oxygen therapy represents the patient's 7th such session of a planned 40 sessions. Tolerance of hyperbaric oxygen therapy: Hyperbaric oxygen therapy was administered per our facility's protocol. Patient tolerated hyperbaric oxygen therapy well, without complaints or complications. Upon emergence from the hyperbaric chamber, the patient's vital signs remained stable. He was discharged in good condition. Today's treatment was administered at 2 steph for a total of 120 minutes. He had tympanostomy tubes placed yesterday and they are open and intact today on exam pre and post treatment. Past Medical History Chronic Problems Chronic radiation cystitis (Chronic) Hypertension (Chronic) Irradiation cystitis with hematuria (Chronic) Allergies/Adverse Reactions: Allergies No Known Allergies Allergy (Verified 08/17/18 09:05) Home Medications: Ambulatory Orders Medication Instructions Recorded Amlodipine [Norvasc] 10 mg PO DAILY 02/08/16 Metoprolol Succinate 50 mg PO DAILY 02/08/16 Smoking Status: Heavy Smoker (>10/day) Tobacco Use: Cigarettes Alcohol: None Drugs: None Physical Exam Vital Signs Temp Pulse Resp BP 98.4 F 85 18 149/80 H 12/15/18 14:32 12/15/18 14:32 12/15/18 14:32 12/15/18 14:32 General: Alert, Oriented x3, Cooperative, No apparent distress Psych/Mental Status: Normal Affect, Appropriate Assessment/Plan Active Problems Chronic radiation cystitis (Chronic) Irradiation cystitis with hematuria (Chronic) The patient appears to be tolerating hyperbaric oxygen therapy well, which will be continued as per the patient's medical plan.
--- NOTE | 2018-12-18 15:31 | PCM.HBO.PN ---
History of Present Illness Date of Service: 12/18/18 Presenting Chief Complaint: Chronic radiation cystitis EMBER WILSON is a 58 year old male currently undergoing hyperbaric oxygen therapy for chronic radiation cystitis. Progress: Today's session of hyperbaric oxygen therapy represents the patient's 8th such session of a planned 40 sessions. Tolerance of hyperbaric oxygen therapy: Hyperbaric oxygen therapy was administered per our facility's protocol. Patient tolerated hyperbaric oxygen therapy well, without complaints or complications. Upon emergence from the hyperbaric chamber, the patient's vital signs remained stable. He was discharged in good condition. Today's treatment was administered at 2 steph for a total of 120 minutes. He had tympanostomy tubes placed 12/14/18 and they are open and intact. Past Medical History Chronic Problems Chronic radiation cystitis (Chronic) Hypertension (Chronic) Irradiation cystitis with hematuria (Chronic) Allergies/Adverse Reactions: Allergies No Known Allergies Allergy (Verified 08/17/18 09:05) Home Medications: Ambulatory Orders Medication Instructions Recorded Amlodipine [Norvasc] 10 mg PO DAILY 02/08/16 Metoprolol Succinate 50 mg PO DAILY 02/08/16 Smoking Status: Heavy Smoker (>10/day) Tobacco Use: Cigarettes Alcohol: None Drugs: None Physical Exam Vital Signs Temp Pulse Resp BP 98.4 F 85 18 149/80 H 12/15/18 14:32 12/15/18 14:32 12/15/18 14:32 12/15/18 14:32 General: Alert, Oriented x3, Cooperative, No apparent distress HEENT: Atraumatic, TM's Clear Lungs: Clear to auscultation, Normal air movement Cardiovascular: Regular rate, Regular Rhythm Psych/Mental Status: Normal Affect, Appropriate, Alert and oriented to time, place, person, mood and affect Assessment/Plan The patient appears to be tolerating hyperbaric oxygen therapy well, which will be continued as per the patient's medical plan.
[2018-12-18 15:52] VITALS: BP 141/85; BP 147/85; PULSE 74; PULSE 85; RESP 16; RESP 18; TEMP 36.3; TEMP 36.6
[2018-12-19 15:45] VITALS: BP 139/83; BP 145/86; PULSE 66; PULSE 73; RESP 16; RESP 18; TEMP 37.1; TEMP 37.2
--- NOTE | 2018-12-20 14:45 | PCM.HBO.PN ---
History of Present Illness Date of Service: 12/20/18 Presenting Chief Complaint: Chronic radiation cystitis EMBER WILSON is a 58 year old male currently undergoing hyperbaric oxygen therapy for chronic radiation cystitis. Progress: Today's session of hyperbaric oxygen therapy represents the patient's 10th such session of a planned 40 sessions. Tolerance of hyperbaric oxygen therapy: Hyperbaric oxygen therapy was administered per our facility's protocol. Patient tolerated hyperbaric oxygen therapy well, without complaints or complications. Upon emergence from the hyperbaric chamber, the patient's vital signs remained stable. He was discharged in good condition. Today's treatment was administered at 2 steph for a total of 120 minutes. He had tympanostomy tubes placed 12/14/18 and they are open and intact. Past Medical History Chronic Problems Chronic radiation cystitis (Chronic) Hypertension (Chronic) Irradiation cystitis with hematuria (Chronic) Allergies/Adverse Reactions: Allergies No Known Allergies Allergy (Verified 08/17/18 09:05) Home Medications: Ambulatory Orders Medication Instructions Recorded Amlodipine [Norvasc] 10 mg PO DAILY 02/08/16 Metoprolol Succinate 50 mg PO DAILY 02/08/16 Smoking Status: Heavy Smoker (>10/day) Tobacco Use: Cigarettes Alcohol: None Drugs: None Physical Exam Vital Signs Temp Pulse Resp BP 99.0 F 73 18 139/83 H 12/19/18 15:45 12/19/18 15:45 12/19/18 15:45 12/19/18 15:45 General: Alert, Oriented x3, Cooperative, No apparent distress HEENT: Atraumatic, TM's Clear - tubes intact Lungs: Clear to auscultation, Normal air movement Cardiovascular: Regular rate, Regular Rhythm Psych/Mental Status: Normal Affect, Appropriate, Alert and oriented to time, place, person, mood and affect Assessment/Plan The patient appears to be tolerating hyperbaric oxygen therapy well, which will be continued as per the patient's medical plan.
[2018-12-20 16:25] VITALS: BP 141/82; BP 149/86; PULSE 68; PULSE 79; RESP 16; TEMP 37; TEMP 37.1
[2018-12-21 14:36] VITALS: BP 139/79; BP 151/84; PULSE 67; PULSE 80; RESP 16; RESP 18; TEMP 36.7; TEMP 37.1
--- NOTE | 2018-12-21 17:10 | PCM.HBO.PN ---
History of Present Illness Date of Service: 12/21/18 Presenting Chief Complaint: Chronic radiation cystitis EMBER WILSON is a 58 year old male currently undergoing hyperbaric oxygen therapy for chronic radiation cystitis. Progress: Today's session of hyperbaric oxygen therapy represents the patient's 11th such session of a planned 40 sessions. Tolerance of hyperbaric oxygen therapy: Hyperbaric oxygen therapy was administered per our facility's protocol. Patient tolerated hyperbaric oxygen therapy well, without complaints or complications. Upon emergence from the hyperbaric chamber, the patient's vital signs remained stable. He was discharged in good condition. Today's treatment was administered at 2 steph for a total of 120 minutes. He had tympanostomy tubes placed 12/14/18 and they are open and intact. Past Medical History Chronic Problems Chronic radiation cystitis (Chronic) Hypertension (Chronic) Irradiation cystitis with hematuria (Chronic) Allergies/Adverse Reactions: Allergies No Known Allergies Allergy (Verified 08/17/18 09:05) Home Medications: Ambulatory Orders Medication Instructions Recorded Amlodipine [Norvasc] 10 mg PO DAILY 02/08/16 Metoprolol Succinate 50 mg PO DAILY 02/08/16 Smoking Status: Heavy Smoker (>10/day) Tobacco Use: Cigarettes Alcohol: None Drugs: None Physical Exam Vital Signs Temp Pulse Resp BP 98.7 F 80 18 139/79 H 12/21/18 14:36 12/21/18 14:36 12/21/18 14:36 12/21/18 14:36 General: Alert, Oriented x3, Cooperative, No apparent distress HEENT: Atraumatic, PERRLA, Normocephalic, TM's Clear, - - bilateral myringotomy tubes intact Lungs: Clear to auscultation, Normal air movement Cardiovascular: Regular rate, Regular Rhythm, Normal S1, Normal S2, No murmurs Psych/Mental Status: Normal Affect, Appropriate, Alert and oriented to time, place, person, mood and affect Assessment/Plan The patient appears to be tolerating hyperbaric oxygen therapy well, which will be continued as per the patient's medical plan.
[2018-12-22 16:41] VITALS: BP 142/78; BP 145/75; PULSE 69; PULSE 81; RESP 16; RESP 18; TEMP 36.9; TEMP 37.6
--- NOTE | 2018-12-22 19:37 | PCM.HBO.PN ---
History of Present Illness Date of Service: 12/22/18 Presenting Chief Complaint: Chronic radiation cystitis EMBER WILSON is a 58 year old male currently undergoing hyperbaric oxygen therapy for chronic radiation cystitis. Progress: Today's session of hyperbaric oxygen therapy represents the patient's 12th such session of a planned 40 sessions. Tolerance of hyperbaric oxygen therapy: Hyperbaric oxygen therapy was administered per our facility's protocol. Patient tolerated hyperbaric oxygen therapy well, without complaints or complications. Upon emergence from the hyperbaric chamber, the patient's vital signs remained stable. He was discharged in good condition. Today's treatment was administered at 2 steph for a total of 120 minutes. He had tympanostomy tubes placed 12/14/18 and they are open and intact. Past Medical History Chronic Problems Chronic radiation cystitis (Chronic) Hypertension (Chronic) Irradiation cystitis with hematuria (Chronic) Allergies/Adverse Reactions: Allergies No Known Allergies Allergy (Verified 08/17/18 09:05) Home Medications: Ambulatory Orders Medication Instructions Recorded Amlodipine [Norvasc] 10 mg PO DAILY 02/08/16 Metoprolol Succinate 50 mg PO DAILY 02/08/16 Smoking Status: Heavy Smoker (>10/day) Tobacco Use: Cigarettes Alcohol: None Drugs: None Physical Exam Vital Signs Temp Pulse Resp BP 99.7 F H 81 18 142/78 H 12/22/18 16:41 12/22/18 16:41 12/22/18 16:41 12/22/18 16:41 General: Alert, Oriented x3, Cooperative, No apparent distress Psych/Mental Status: Normal Affect, Appropriate Assessment/Plan Active Problems Chronic radiation cystitis (Chronic) Irradiation cystitis with hematuria (Chronic) The patient appears to be tolerating hyperbaric oxygen therapy well, which will be continued as per the patient's medical plan.
--- NOTE | 2018-12-23 21:39 | PCM.HBO.PN ---
History of Present Illness Date of Service: 12/19/18 Presenting Chief Complaint: Chronic radiation cystitis EMBER WILSON is a 58 year old male currently undergoing hyperbaric oxygen therapy for chronic radiation cystitis. Progress: Today's session of hyperbaric oxygen therapy represents the patient's 9th such session of a planned 40 sessions. Tolerance of hyperbaric oxygen therapy: Hyperbaric oxygen therapy was administered per our facility's protocol. Patient tolerated hyperbaric oxygen therapy well, without complaints or complications. Upon emergence from the hyperbaric chamber, the patient's vital signs remained stable. He was discharged in good condition. Today's treatment was administered at 2 steph for a total of 120 minutes. He had tympanostomy tubes placed 12/14/18 and they are open and intact. Past Medical History Chronic Problems Chronic radiation cystitis (Chronic) Hypertension (Chronic) Irradiation cystitis with hematuria (Chronic) Allergies/Adverse Reactions: Allergies No Known Allergies Allergy (Verified 08/17/18 09:05) Home Medications: Ambulatory Orders Medication Instructions Recorded Amlodipine [Norvasc] 10 mg PO DAILY 02/08/16 Metoprolol Succinate 50 mg PO DAILY 02/08/16 Smoking Status: Heavy Smoker (>10/day) Tobacco Use: Cigarettes Alcohol: None Drugs: None Physical Exam Vital Signs Temp Pulse Resp BP 99.7 F H 81 18 142/78 H 12/22/18 16:41 12/22/18 16:41 12/22/18 16:41 12/22/18 16:41 General: Alert, Oriented x3, Cooperative HEENT: Atraumatic, TM's Clear - Ear tubes seen bilaterally Lungs: Clear to auscultation, Normal air movement Cardiovascular: Regular rate, Regular Rhythm Psych/Mental Status: Normal Affect, Appropriate Assessment/Plan Active Problems Chronic radiation cystitis (Chronic) Irradiation cystitis with hematuria (Chronic) The patient appears to be tolerating hyperbaric oxygen therapy well, which will be continued as per the patient's medical plan.
[2018-12-25 13:15] VITALS: BP 147/91; BP 150/88; PULSE 69; PULSE 81; RESP 16; RESP 18; TEMP 36.6; TEMP 36.8
--- NOTE | 2018-12-25 13:32 | PCM.HBO.PN ---
History of Present Illness Date of Service: 12/25/18 Presenting Chief Complaint: Chronic radiation cystitis EMBER WILSON is a 58 year old male currently undergoing hyperbaric oxygen therapy for chronic radiation cystitis. Progress: Today's session of hyperbaric oxygen therapy represents the patient's 13th such session of a planned 40 sessions. Tolerance of hyperbaric oxygen therapy: Hyperbaric oxygen therapy was administered per our facility's protocol. Patient tolerated hyperbaric oxygen therapy well, without complaints or complications. Upon emergence from the hyperbaric chamber, the patient's vital signs remained stable. He was discharged in good condition. Today's treatment was administered at 2 steph for a total of 120 minutes. He had tympanostomy tubes placed 12/14/18 and they are open and intact. Past Medical History Chronic Problems Chronic radiation cystitis (Chronic) Hypertension (Chronic) Irradiation cystitis with hematuria (Chronic) Allergies/Adverse Reactions: Allergies No Known Allergies Allergy (Verified 08/17/18 09:05) Home Medications: Ambulatory Orders Medication Instructions Recorded Amlodipine [Norvasc] 10 mg PO DAILY 02/08/16 Metoprolol Succinate 50 mg PO DAILY 02/08/16 Smoking Status: Heavy Smoker (>10/day) Tobacco Use: Cigarettes Alcohol: None Drugs: None Physical Exam Vital Signs Temp Pulse Resp BP 98.2 F 81 18 150/88 H 12/25/18 13:15 12/25/18 13:15 12/25/18 13:15 12/25/18 13:15 General: Alert, Oriented x3, Cooperative HEENT: Atraumatic, TM's Clear Lungs: Clear to auscultation, Normal air movement Cardiovascular: Regular rate, Regular Rhythm Psych/Mental Status: Normal Affect, Appropriate, Alert and oriented to time, place, person, mood and affect Assessment/Plan The patient appears to be tolerating hyperbaric oxygen therapy well, which will be continued as per the patient's medical plan.
[2018-12-26 14:45] VITALS: BP 144/77; BP 148/91; PULSE 66; PULSE 81; RESP 16; RESP 18; TEMP 36.9
--- NOTE | 2018-12-26 17:08 | PCM.HBO.PN ---
History of Present Illness Date of Service: 12/26/18 Presenting Chief Complaint: Chronic radiation cystitis EMBER WILSON is a 58 year old male currently undergoing hyperbaric oxygen therapy for chronic radiation cystitis. Progress: Today's session of hyperbaric oxygen therapy represents the patient's 14th such session of a planned 40 sessions. Tolerance of hyperbaric oxygen therapy: Hyperbaric oxygen therapy was administered per our facility's protocol. Patient tolerated hyperbaric oxygen therapy well, without complaints or complications. Upon emergence from the hyperbaric chamber, the patient's vital signs remained stable. He was discharged in good condition. Today's treatment was administered at 2 steph for a total of 120 minutes. He had tympanostomy tubes placed 12/14/18 and they are open and intact. Past Medical History Chronic Problems Chronic radiation cystitis (Chronic) Hypertension (Chronic) Irradiation cystitis with hematuria (Chronic) Allergies/Adverse Reactions: Allergies No Known Allergies Allergy (Verified 08/17/18 09:05) Home Medications: Ambulatory Orders Medication Instructions Recorded Amlodipine [Norvasc] 10 mg PO DAILY 02/08/16 Metoprolol Succinate 50 mg PO DAILY 02/08/16 Smoking Status: Heavy Smoker (>10/day) Tobacco Use: Cigarettes Alcohol: None Drugs: None Physical Exam Vital Signs Temp Pulse Resp BP 98.5 F 81 18 148/91 H 12/26/18 14:45 12/26/18 14:45 12/26/18 14:45 12/26/18 14:45 General: Alert, Oriented x3, Cooperative HEENT: Atraumatic, TM's Clear - able to visualize tubes bilaterally Lungs: Clear to auscultation, Normal air movement Cardiovascular: Regular rate Psych/Mental Status: Normal Affect Assessment/Plan The patient appears to be tolerating hyperbaric oxygen therapy well, which will be continued as per the patient's medical plan. Code Visit 53525
[2018-12-28 14:30] VITALS: BP 137/76; BP 146/82; PULSE 63; PULSE 79; RESP 16; RESP 18; TEMP 36.7; TEMP 37
--- NOTE | 2018-12-28 20:11 | PCM.HBO.PN ---
History of Present Illness Date of Service: 12/28/18 Presenting Chief Complaint: Chronic radiation cystitis EMBER WILSON is a 58 year old male currently undergoing hyperbaric oxygen therapy for chronic radiation cystitis. Progress: Today's session of hyperbaric oxygen therapy represents the patient's 15th such session of a planned 40 sessions. Tolerance of hyperbaric oxygen therapy: Hyperbaric oxygen therapy was administered per our facility's protocol. Patient tolerated hyperbaric oxygen therapy well, without complaints or complications. Upon emergence from the hyperbaric chamber, the patient's vital signs remained stable. He was discharged in good condition. Today's treatment was administered at 2 steph for a total of 120 minutes. He had tympanostomy tubes placed 12/14/18 and they are open and intact. He did go to the emergency department on 12/26/2018 for hypertension and is following up with his primary care for medication adjustment. Past Medical History Chronic Problems Chronic radiation cystitis (Chronic) Hypertension (Chronic) Irradiation cystitis with hematuria (Chronic) Allergies/Adverse Reactions: Allergies No Known Allergies Allergy (Verified 12/27/18 11:00) Home Medications: Ambulatory Orders Medication Instructions Recorded Amlodipine [Norvasc] 10 mg PO DAILY 02/08/16 Metoprolol Succinate 50 mg PO DAILY 02/08/16 Smoking Status: Former smoker Tobacco Use: Cigarettes Alcohol: None Drugs: None Physical Exam Vital Signs Temp Pulse Resp BP 98.5 F 81 18 148/91 H 12/26/18 14:45 12/26/18 14:45 12/26/18 14:45 12/26/18 14:45 General: Alert, Oriented x3, Cooperative, No apparent distress HEENT: Atraumatic, PERRLA, Normocephalic, TM's Clear, - - Bilateral myringotomy tubes present Lungs: Clear to auscultation, Normal air movement, No rhonchi, No wheeze, No rales Cardiovascular: Regular rate, Regular Rhythm Psych/Mental Status: Normal Affect, Appropriate, Alert and oriented to time, place, person, mood and affect Assessment/Plan The patient appears to be tolerating hyperbaric oxygen therapy well, which will be continued as per the patient's medical plan.
[2018-12-29 14:10] VITALS: BP 142/83; BP 152/81; PULSE 70; PULSE 83; RESP 16; RESP 18; TEMP 36.9; TEMP 37
--- NOTE | 2018-12-29 18:56 | PCM.HBO.PN ---
History of Present Illness Date of Service: 12/29/18 Presenting Chief Complaint: Chronic radiation cystitis EMBER WILSON is a 58 year old male currently undergoing hyperbaric oxygen therapy for chronic radiation cystitis. Progress: Today's session of hyperbaric oxygen therapy represents the patient's 16th such session of a planned 40 sessions. Tolerance of hyperbaric oxygen therapy: Hyperbaric oxygen therapy was administered per our facility's protocol. Patient tolerated hyperbaric oxygen therapy well, without complaints or complications. Upon emergence from the hyperbaric chamber, the patient's vital signs remained stable. He was discharged in good condition. Today's treatment was administered at 2 steph for a total of 120 minutes. He had tympanostomy tubes placed 12/14/18 and they are open and intact. Past Medical History Chronic Problems Chronic radiation cystitis (Chronic) Hypertension (Chronic) Irradiation cystitis with hematuria (Chronic) Allergies/Adverse Reactions: Allergies No Known Allergies Allergy (Verified 12/27/18 11:00) Home Medications: Ambulatory Orders Medication Instructions Recorded Amlodipine [Norvasc] 10 mg PO DAILY 02/08/16 Metoprolol Succinate 50 mg PO DAILY 02/08/16 Smoking Status: Former smoker Tobacco Use: Cigarettes Alcohol: None Drugs: None Physical Exam Vital Signs Temp Pulse Resp BP 98.4 F 83 18 152/81 H 12/29/18 14:10 12/29/18 14:10 12/29/18 14:10 12/29/18 14:10 General: Alert, Oriented x3, Cooperative, No apparent distress Psych/Mental Status: Normal Affect, Appropriate Assessment/Plan Active Problems Chronic radiation cystitis (Chronic) Hypertension (Chronic) Irradiation cystitis with hematuria (Chronic) The patient appears to be tolerating hyperbaric oxygen therapy well, which will be continued as per the patient's medical plan.
--- NOTE | 2019-01-01 14:28 | PCM.HBO.PN ---
History of Present Illness Date of Service: 01/01/19 Presenting Chief Complaint: Chronic radiation cystitis EMBER WILSON is a 58 year old male currently undergoing hyperbaric oxygen therapy for chronic radiation cystitis. Progress: Today's session of hyperbaric oxygen therapy represents the patient's 17th such session of a planned 40 sessions. Tolerance of hyperbaric oxygen therapy: Hyperbaric oxygen therapy was administered per our facility's protocol. Patient tolerated hyperbaric oxygen therapy well, without complaints or complications. Upon emergence from the hyperbaric chamber, the patient's vital signs remained stable. He was discharged in good condition. Today's treatment was administered at 2 steph for a total of 120 minutes. He had tympanostomy tubes placed 12/14/18 and they are open and intact. Past Medical History Chronic Problems Chronic radiation cystitis (Chronic) Hypertension (Chronic) Irradiation cystitis with hematuria (Chronic) Allergies/Adverse Reactions: Allergies No Known Allergies Allergy (Verified 12/27/18 11:00) Home Medications: Ambulatory Orders Medication Instructions Recorded Amlodipine [Norvasc] 10 mg PO DAILY 02/08/16 Metoprolol Succinate 50 mg PO DAILY 02/08/16 Smoking Status: Former smoker Tobacco Use: Cigarettes Alcohol: None Drugs: None Physical Exam Vital Signs Temp Pulse Resp BP 98.4 F 83 18 152/81 H 12/29/18 14:10 12/29/18 14:10 12/29/18 14:10 12/29/18 14:10 General: Alert, Oriented x3, Cooperative, No apparent distress HEENT: Atraumatic, TM's Clear Lungs: Clear to auscultation, Normal air movement Cardiovascular: Regular rate, Regular Rhythm Psych/Mental Status: Normal Affect, Appropriate, Alert and oriented to time, place, person, mood and affect Assessment/Plan The patient appears to be tolerating hyperbaric oxygen therapy well, which will be continued as per the patient's medical plan.
[2019-01-01 14:29] VITALS: BP 105/82; BP 142/82; PULSE 74; PULSE 81; RESP 16; RESP 18; TEMP 36.4; TEMP 37
--- NOTE | 2019-01-02 14:37 | PCM.HBO.PN ---
History of Present Illness Date of Service: 01/02/19 Presenting Chief Complaint: Chronic radiation cystitis EMBER WILSON is a 58 year old male currently undergoing hyperbaric oxygen therapy for chronic radiation cystitis. Progress: Today's session of hyperbaric oxygen therapy represents the patient's 18th such session of a planned 40 sessions. Tolerance of hyperbaric oxygen therapy: Hyperbaric oxygen therapy was administered per our facility's protocol. Patient tolerated hyperbaric oxygen therapy well, without complaints or complications. Upon emergence from the hyperbaric chamber, the patient's vital signs remained stable. He was discharged in good condition. Today's treatment was administered at 2 steph for a total of 120 minutes. He had tympanostomy tubes placed 12/14/18 and they are open and intact. Past Medical History Chronic Problems Chronic radiation cystitis (Chronic) Hypertension (Chronic) Irradiation cystitis with hematuria (Chronic) Allergies/Adverse Reactions: Allergies No Known Allergies Allergy (Verified 12/27/18 11:00) Home Medications: Ambulatory Orders Medication Instructions Recorded Amlodipine [Norvasc] 10 mg PO DAILY 02/08/16 Metoprolol Succinate 50 mg PO DAILY 02/08/16 Smoking Status: Former smoker Tobacco Use: Cigarettes Alcohol: None Drugs: None Physical Exam Vital Signs Temp Pulse Resp BP 98.6 F 81 18 142/82 H 01/01/19 14:29 01/01/19 14:29 01/01/19 14:29 01/01/19 14:29 General: Alert, Oriented x3, Cooperative, No apparent distress HEENT: Atraumatic, TM's Clear Lungs: Clear to auscultation, Normal air movement Cardiovascular: Regular rate, Regular Rhythm Psych/Mental Status: Normal Affect, Appropriate, Alert and oriented to time, place, person, mood and affect Assessment/Plan The patient appears to be tolerating hyperbaric oxygen therapy well, which will be continued as per the patient's medical plan.
[2019-01-02 16:40] VITALS: BP 135/86; BP 147/81; PULSE 64; PULSE 79; RESP 16; TEMP 17.7; TEMP 37.1
--- NOTE | 2019-01-03 15:25 | PCM.HBO.PN ---
History of Present Illness Date of Service: 01/03/19 Presenting Chief Complaint: Chronic radiation cystitis EMBER WILSON is a 58 year old male currently undergoing hyperbaric oxygen therapy for chronic radiation cystitis. Progress: Today's session of hyperbaric oxygen therapy represents the patient's 19th such session of a planned 40 sessions. Tolerance of hyperbaric oxygen therapy: Hyperbaric oxygen therapy was administered per our facility's protocol. Patient tolerated hyperbaric oxygen therapy well, without complaints or complications. Upon emergence from the hyperbaric chamber, the patient's vital signs remained stable. He was discharged in good condition. Today's treatment was administered at 2 steph for a total of 120 minutes. He had tympanostomy tubes placed 12/14/18 and they are open and intact. Past Medical History Chronic Problems Chronic radiation cystitis (Chronic) Hypertension (Chronic) Irradiation cystitis with hematuria (Chronic) Allergies/Adverse Reactions: Allergies No Known Allergies Allergy (Verified 12/27/18 11:00) Home Medications: Ambulatory Orders Medication Instructions Recorded Amlodipine [Norvasc] 10 mg PO DAILY 02/08/16 Metoprolol Succinate 50 mg PO DAILY 02/08/16 Smoking Status: Former smoker Tobacco Use: Cigarettes Alcohol: None Drugs: None Physical Exam Vital Signs Temp Pulse Resp BP 98.8 F 79 16 135/86 H 01/02/19 16:40 01/02/19 16:40 01/02/19 16:40 01/02/19 16:40 General: Alert, Oriented x3, Cooperative, No apparent distress HEENT: Atraumatic, TM's Clear Lungs: Clear to auscultation, Normal air movement Cardiovascular: Regular rate, Regular Rhythm Psych/Mental Status: Normal Affect, Appropriate, Alert and oriented to time, place, person, mood and affect Assessment/Plan The patient appears to be tolerating hyperbaric oxygen therapy well, which will be continued as per the patient's medical plan.
[2019-01-03 16:36] VITALS: BP 145/79; BP 147/92; PULSE 69; PULSE 77; RESP 16; TEMP 36.3; TEMP 37.1
[2019-01-04 15:03] VITALS: BP 158/84; PULSE 84; RESP 18; TEMP 37.3
--- NOTE | 2019-01-04 15:26 | PCM.HBO.PN ---
History of Present Illness Date of Service: 01/04/19 Presenting Chief Complaint: Chronic radiation cystitis EMBER WILSON is a 58 year old male currently undergoing hyperbaric oxygen therapy for chronic radiation cystitis. Progress: Today's session of hyperbaric oxygen therapy represents the patient's 20th such session of a planned 40 sessions. Tolerance of hyperbaric oxygen therapy: Hyperbaric oxygen therapy was administered per our facility's protocol. Patient tolerated hyperbaric oxygen therapy well, without complaints or complications. Upon emergence from the hyperbaric chamber, the patient's vital signs remained stable. He was discharged in good condition. Today's treatment was administered at 2 steph for a total of 120 minutes. He had tympanostomy tubes placed 12/14/18 and they are open and intact. Past Medical History Chronic Problems Chronic radiation cystitis (Chronic) Hypertension (Chronic) Irradiation cystitis with hematuria (Chronic) Allergies/Adverse Reactions: Allergies No Known Allergies Allergy (Verified 12/27/18 11:00) Home Medications: Ambulatory Orders Medication Instructions Recorded Amlodipine [Norvasc] 10 mg PO DAILY 02/08/16 Metoprolol Succinate 50 mg PO DAILY 02/08/16 Smoking Status: Former smoker Tobacco Use: Cigarettes Alcohol: None Drugs: None Physical Exam Vital Signs Temp Pulse Resp BP 99.1 F 84 18 158/84 H 01/04/19 15:03 01/04/19 15:03 01/04/19 15:03 01/04/19 15:03 General: Alert, Oriented x3, Cooperative, No apparent distress HEENT: Atraumatic, TM's Clear Lungs: Clear to auscultation, Normal air movement Cardiovascular: Regular rate, Regular Rhythm Psych/Mental Status: Normal Affect, Appropriate, Alert and oriented to time, place, person, mood and affect Assessment/Plan The patient appears to be tolerating hyperbaric oxygen therapy well, which will be continued as per the patient's medical plan.
[2019-01-08 14:24] VITALS: BP 145/87; BP 148/86; PULSE 80; PULSE 86; RESP 16; RESP 18; TEMP 36.8; TEMP 37.1
--- NOTE | 2019-01-08 15:12 | PCM.HBO.PN ---
History of Present Illness Date of Service: 01/08/19 Presenting Chief Complaint: Chronic radiation cystitis EMBER WILSON is a 58 year old male currently undergoing hyperbaric oxygen therapy for chronic radiation cystitis. Progress: Today's session of hyperbaric oxygen therapy represents the patient's 21st such session of a planned 40 sessions. Tolerance of hyperbaric oxygen therapy: Hyperbaric oxygen therapy was administered per our facility's protocol. Patient tolerated hyperbaric oxygen therapy well, without complaints or complications. Upon emergence from the hyperbaric chamber, the patient's vital signs remained stable. He was discharged in good condition. Today's treatment was administered at 2 steph for a total of 120 minutes. He had tympanostomy tubes placed 12/14/18 and they are open and intact. Past Medical History Chronic Problems Chronic radiation cystitis (Chronic) Hypertension (Chronic) Irradiation cystitis with hematuria (Chronic) Allergies/Adverse Reactions: Allergies No Known Allergies Allergy (Verified 12/27/18 11:00) Home Medications: Ambulatory Orders Medication Instructions Recorded Amlodipine [Norvasc] 10 mg PO DAILY 02/08/16 Metoprolol Succinate 50 mg PO DAILY 02/08/16 Smoking Status: Former smoker Tobacco Use: Cigarettes Alcohol: None Drugs: None Physical Exam Vital Signs Temp Pulse Resp BP 98.7 F 86 18 148/86 H 01/08/19 14:24 01/08/19 14:24 01/08/19 14:24 01/08/19 14:24 General: Alert, Oriented x3, Cooperative, No apparent distress HEENT: Atraumatic, TM's Clear Lungs: Clear to auscultation, Normal air movement Cardiovascular: Regular rate, Regular Rhythm Psych/Mental Status: Normal Affect, Appropriate, Alert and oriented to time, place, person, mood and affect Assessment/Plan The patient appears to be tolerating hyperbaric oxygen therapy well, which will be continued as per the patient's medical plan.
[2019-01-09 15:04] VITALS: BP 145/82; BP 154/80; PULSE 69; PULSE 83; RESP 16; TEMP 36.7
--- NOTE | 2019-01-09 15:41 | PCM.HBO.PN ---
History of Present Illness Date of Service: 01/09/19 Presenting Chief Complaint: Chronic radiation cystitis EMBER WILSON is a 58 year old male currently undergoing hyperbaric oxygen therapy for chronic radiation cystitis. Progress: Today's session of hyperbaric oxygen therapy represents the patient's 22nd such session of a planned 40 sessions. Tolerance of hyperbaric oxygen therapy: Hyperbaric oxygen therapy was administered per our facility's protocol. Patient tolerated hyperbaric oxygen therapy well, without complaints or complications. Upon emergence from the hyperbaric chamber, the patient's vital signs remained stable. He was discharged in good condition. Today's treatment was administered at 2 steph for a total of 120 minutes. He had tympanostomy tubes placed 12/14/18 and they are open and intact. Past Medical History Chronic Problems Chronic radiation cystitis (Chronic) Hypertension (Chronic) Irradiation cystitis with hematuria (Chronic) Allergies/Adverse Reactions: Allergies No Known Allergies Allergy (Verified 12/27/18 11:00) Home Medications: Ambulatory Orders Medication Instructions Recorded Amlodipine [Norvasc] 10 mg PO DAILY 02/08/16 Metoprolol Succinate 50 mg PO DAILY 02/08/16 Smoking Status: Former smoker Tobacco Use: Cigarettes Alcohol: None Drugs: None Physical Exam Vital Signs Temp Pulse Resp BP 98.1 F 83 16 154/80 H 01/09/19 15:04 01/09/19 15:04 01/09/19 15:04 01/09/19 15:04 General: Alert, Oriented x3, Cooperative, No apparent distress HEENT: Atraumatic, TM's Clear Lungs: Clear to auscultation, Normal air movement Cardiovascular: Regular rate, Regular Rhythm Psych/Mental Status: Normal Affect, Appropriate, Alert and oriented to time, place, person, mood and affect Assessment/Plan The patient appears to be tolerating hyperbaric oxygen therapy well, which will be continued as per the patient's medical plan.
[2019-01-10 14:56] VITALS: BP 141/80; BP 152/84; PULSE 70; PULSE 88; RESP 16; RESP 18; TEMP 36.6; TEMP 37.1
--- NOTE | 2019-01-10 16:24 | PCM.HBO.PN ---
History of Present Illness Date of Service: 01/10/19 Presenting Chief Complaint: Chronic radiation cystitis EMBER WILSON is a 58 year old male currently undergoing hyperbaric oxygen therapy for chronic radiation cystitis. Progress: Today's session of hyperbaric oxygen therapy represents the patient's 23nd such session of a planned 40 sessions. Tolerance of hyperbaric oxygen therapy: Hyperbaric oxygen therapy was administered per our facility's protocol. Patient tolerated hyperbaric oxygen therapy well, without complaints or complications. Upon emergence from the hyperbaric chamber, the patient's vital signs remained stable. He was discharged in good condition. Today's treatment was administered at 2 steph for a total of 120 minutes. He had tympanostomy tubes placed 12/14/18 and they are open and intact. Past Medical History Chronic Problems Chronic radiation cystitis (Chronic) Hypertension (Chronic) Irradiation cystitis with hematuria (Chronic) Allergies/Adverse Reactions: Allergies No Known Allergies Allergy (Verified 12/27/18 11:00) Home Medications: Ambulatory Orders Medication Instructions Recorded Amlodipine [Norvasc] 10 mg PO DAILY 02/08/16 Metoprolol Succinate 50 mg PO DAILY 02/08/16 Smoking Status: Former smoker Tobacco Use: Cigarettes Alcohol: None Drugs: None Physical Exam Vital Signs Temp Pulse Resp BP 98.8 F 88 18 152/84 H 01/10/19 14:56 01/10/19 14:56 01/10/19 14:56 01/10/19 14:56 General: Alert, Oriented x3, Cooperative, No apparent distress HEENT: Atraumatic, TM's Clear Lungs: Clear to auscultation, Normal air movement Cardiovascular: Regular rate, Regular Rhythm Psych/Mental Status: Normal Affect, Appropriate, Alert and oriented to time, place, person, mood and affect Assessment/Plan The patient appears to be tolerating hyperbaric oxygen therapy well, which will be continued as per the patient's medical plan.
[2019-01-11 15:25] VITALS: BP 151/81; PULSE 84; RESP 16; TEMP 37.2
--- NOTE | 2019-01-11 20:46 | PCM.HBO.PN ---
History of Present Illness Date of Service: 01/11/19 Presenting Chief Complaint: Chronic radiation cystitis EMBER WILSON is a 58 year old male currently undergoing hyperbaric oxygen therapy for chronic radiation cystitis. Progress: Today's session of hyperbaric oxygen therapy represents the patient's 24nd such session of a planned 40 sessions. Tolerance of hyperbaric oxygen therapy: Hyperbaric oxygen therapy was administered per our facility's protocol. Patient tolerated hyperbaric oxygen therapy well, without complaints or complications. Upon emergence from the hyperbaric chamber, the patient's vital signs remained stable. He was discharged in good condition. Today's treatment was administered at 2 steph for a total of 120 minutes. He had tympanostomy tubes placed 12/14/18 and they are open and intact. Past Medical History Chronic Problems Chronic radiation cystitis (Chronic) Hypertension (Chronic) Irradiation cystitis with hematuria (Chronic) Allergies/Adverse Reactions: Allergies No Known Allergies Allergy (Verified 12/27/18 11:00) Home Medications: Ambulatory Orders Medication Instructions Recorded Amlodipine [Norvasc] 10 mg PO DAILY 02/08/16 Metoprolol Succinate 50 mg PO DAILY 02/08/16 Smoking Status: Former smoker Tobacco Use: Cigarettes Alcohol: None Drugs: None Physical Exam Vital Signs Temp Pulse Resp BP 99 F 84 16 151/81 H 01/11/19 15:25 01/11/19 15:25 01/11/19 15:25 01/11/19 15:25 General: Alert, Oriented x3, Cooperative, No apparent distress HEENT: Atraumatic, PERRLA, Normocephalic, TM's Clear, - - Bilateral tympanostomy tubes intact Lungs: Clear to auscultation, Normal air movement, No rhonchi, No wheeze, No rales Cardiovascular: Regular rate, Regular Rhythm Psych/Mental Status: Normal Affect, Alert and oriented to time, place, person, mood and affect Assessment/Plan The patient appears to be tolerating hyperbaric oxygen therapy well, which will be continued as per the patient's medical plan.
== END 2019-01-11 23:59 ==
LOC: WC 14:15
PROVIDERS: Family Provider Family Medicine; PCP Family Medicine; Visit Provider Surgery
DX: N30.41 Irradiation cystitis with hematuria (principal); I10 Essential (primary) hypertension; Z79.899 Other long term (current) drug therapy; F17.210 Nicotine dependence, cigarettes, uncomplicated
CPT/HCPCS: 99183; G0277

== ENCOUNTER 2019-02-07 14:15 | Outpatient (RCR) | payer BC, SELFPAY ==
[2019-01-12 01:14] VITALS: BP 151/81; PULSE 84; RESP 16; TEMP 37.2
--- NOTE | 2019-01-12 19:48 | PCM.HBO.PN ---
History of Present Illness Date of Service: 01/12/19 Presenting Chief Complaint: Chronic radiation cystitis EMBER WILSON is a 58 year old currently undergoing hyperbaric oxygen therapy for radiation cystitis s/p radiation for prostate cancer. Progress: Today's hyperbaric oxygen treatment session represents the 25th session of a planned 40 sessions at our facility. Tolerance of hyperbaric oxygen therapy: Hyperbaric oxygen therapy was administered per our facility's protocol. HBO therapy was administered for 90 minutes at 2 ATMs. The patient tolerated HBO therapy well without complications or complaints. Upon emergence of the patient from the hyperbaric oxygen chamber, the patients vital signs remained stable. Past Medical History Chronic Problems Chronic radiation cystitis (Chronic) Hypertension (Chronic) Irradiation cystitis with hematuria (Chronic) Allergies/Adverse Reactions: Allergies No Known Allergies Allergy (Verified 12/27/18 11:00) Home Medications: Ambulatory Orders Medication Instructions Recorded Amlodipine [Norvasc] 10 mg PO DAILY 02/08/16 Metoprolol Succinate 50 mg PO DAILY 02/08/16 Smoking Status: Former smoker Tobacco Use: Cigarettes Physical Exam Vital Signs Temp Pulse Resp BP 99 F 84 16 151/81 H 01/12/19 01:14 01/12/19 01:14 01/12/19 01:14 01/12/19 01:14 General: Alert, Oriented x3, Cooperative, No apparent distress HEENT: EAC Clear - tympanostomy tubes in place and unobstructed bilaterally Psych/Mental Status: Normal Affect, Appropriate Assessment/Plan Active Problems Chronic radiation cystitis (Chronic) Irradiation cystitis with hematuria (Chronic) Patient tolerated hyperbaric oxygen therapy well and will continue treatments as per his medical treatment plan for 40 total sessions.
[2019-01-15 12:41] VITALS: BP 146/83; BP 172/91; PULSE 53; PULSE 55; RESP 16; RESP 18; TEMP 36; TEMP 36.8
[2019-01-18 13:35] VITALS: BP 154/77; PULSE 76; RESP 16; TEMP 36.9; BMI 22.6
[2019-01-18 17:00] VITALS: BP 143/85; BP 154/77; PULSE 69; PULSE 76; RESP 16; TEMP 36.7; TEMP 36.9
--- NOTE | 2019-01-18 17:04 | PCM.HBO.PN ---
History of Present Illness Date of Service: 01/18/19 Presenting Chief Complaint: Chronic radiation cystitis EMBER WILSON is a 58 year old currently undergoing hyperbaric oxygen therapy for radiation cystitis s/p radiation for prostate cancer. Progress: Today's hyperbaric oxygen treatment session represents the 26th session of a planned 40 sessions at our facility. Tolerance of hyperbaric oxygen therapy: Hyperbaric oxygen therapy was administered per our facility's protocol. HBO therapy was administered for 90 minutes at 2 ATMs. The patient tolerated HBO therapy well without complications or complaints. Upon emergence of the patient from the hyperbaric oxygen chamber, the patients vital signs remained stable. The patient was also evaluated and examined today for his 30-day HBO evaluation. Patient states that since having his bilateral myringotomy tubes placed, he has been tolerating the HBO therapy well. He notes that his hematuria which was present prior due to his chronic radiation cystitis has actually lessened. He denies any acute concerns at this time. He does have a prescription of Chantix at home which she is considering starting to assist with his smoking cessation. He was also having elevated blood pressures and his primary care adjusted his antihypertensive regimen. He denies any acute concerns at this time. The patient otherwise denies any fever, chills, nausea, vomiting, shortness of breath, chest pain or pressure, palpitations, orthopnea, lower extremity edema, syncope or presyncopal episodes. Past Medical History Chronic Problems Chronic radiation cystitis (Chronic) Hypertension (Chronic) Irradiation cystitis with hematuria (Chronic) Allergies/Adverse Reactions: Allergies No Known Allergies Allergy (Verified 12/27/18 11:00) Home Medications: Ambulatory Orders Medication Instructions Recorded Amlodipine [Norvasc] 10 mg PO DAILY 02/08/16 Metoprolol Succinate 50 mg PO DAILY 02/08/16 Lives: With Family Smoking Status: Former smoker Tobacco Use: Cigarettes Physical Exam Vital Signs Temp Pulse Resp BP 98.4 F 76 16 154/77 H 01/18/19 13:35 01/18/19 13:35 01/18/19 13:35 01/18/19 13:35 General: Alert, Oriented x3, Cooperative, No apparent distress HEENT: Atraumatic, PERRLA, Normocephalic, - - Bilateral tympanostomy tubes in place Lungs: Clear to auscultation, Normal air movement, No rhonchi, No wheeze, No rales Cardiovascular: Regular rate, Regular Rhythm, Normal S1, Normal S2 Psych/Mental Status: Normal Affect, Appropriate, Alert and oriented to time, place, person, mood and affect Assessment/Plan Patient tolerated hyperbaric oxygen therapy well and will continue treatments as per his medical treatment plan for 40 total sessions. Patient was educated on the importance of smoking cessation and ensuring that he has good blood pressure control. Patient overall has been evaluated and cleared to continue HBO therapy. This note was generated with [employer] dictation software. It may contain incorrect words, spelling, and punctuation that were not noted in checking the note before signing. Code Visit Office Visits / Consults: 10381 OV L3 Est
[2019-01-19 14:41] VITALS: BP 139/82; BP 143/78; PULSE 69; PULSE 85; RESP 16; TEMP 36.4
--- NOTE | 2019-01-19 19:24 | PCM.HBO.PN ---
History of Present Illness Date of Service: 01/19/19 Presenting Chief Complaint: Chronic radiation cystitis EMBER WILSON is a 58 year old currently undergoing hyperbaric oxygen therapy for radiation cystitis s/p radiation for prostate cancer. Progress: Today's hyperbaric oxygen treatment session represents the 27th session of a planned 40 sessions at our facility. Tolerance of hyperbaric oxygen therapy: Hyperbaric oxygen therapy was administered per our facility's protocol. HBO therapy was administered for 90 minutes at 2 ATMs. The patient tolerated HBO therapy well without complications or complaints. Upon emergence of the patient from the hyperbaric oxygen chamber, the patients vital signs remained stable. Patient states that since having his bilateral myringotomy tubes placed, he has been tolerating the HBO therapy well. He notes that his hematuria which was present prior due to his chronic radiation cystitis has actually lessened. Past Medical History Chronic Problems Chronic radiation cystitis (Chronic) Hypertension (Chronic) Irradiation cystitis with hematuria (Chronic) Allergies/Adverse Reactions: Allergies No Known Allergies Allergy (Verified 12/27/18 11:00) Home Medications: Ambulatory Orders Medication Instructions Recorded Amlodipine [Norvasc] 10 mg PO DAILY 02/08/16 Metoprolol Succinate 50 mg PO DAILY 02/08/16 Lives: With Family Smoking Status: Former smoker Tobacco Use: Cigarettes Physical Exam Vital Signs Temp Pulse Resp BP 97.5 F L 85 16 139/82 H 01/19/19 14:41 01/19/19 14:41 01/19/19 14:41 01/19/19 14:41 General: Alert, Oriented x3, Cooperative, No apparent distress Psych/Mental Status: Normal Affect, Appropriate Assessment/Plan Active Problems Chronic radiation cystitis (Chronic) Irradiation cystitis with hematuria (Chronic) Patient tolerated hyperbaric oxygen therapy well and will continue treatments as per his medical treatment plan for 40 total sessions.
--- NOTE | 2019-01-22 14:43 | PCM.HBO.PN ---
History of Present Illness Date of Service: 01/22/19 Presenting Chief Complaint: Chronic radiation cystitis EMBER WILSON is a 58 year old currently undergoing hyperbaric oxygen therapy for radiation cystitis s/p radiation for prostate cancer. Progress: Today's hyperbaric oxygen treatment session represents the 28th session of a planned 40 sessions at our facility. Tolerance of hyperbaric oxygen therapy: Hyperbaric oxygen therapy was administered per our facility's protocol. HBO therapy was administered for 90 minutes at 2 ATMs. The patient tolerated HBO therapy well without complications or complaints. Upon emergence of the patient from the hyperbaric oxygen chamber, the patients vital signs remained stable. Past Medical History Chronic Problems Chronic radiation cystitis (Chronic) Hypertension (Chronic) Irradiation cystitis with hematuria (Chronic) Allergies/Adverse Reactions: Allergies No Known Allergies Allergy (Verified 12/27/18 11:00) Home Medications: Ambulatory Orders Medication Instructions Recorded Amlodipine [Norvasc] 10 mg PO DAILY 02/08/16 Metoprolol Succinate 50 mg PO DAILY 02/08/16 Lives: With Family Smoking Status: Former smoker Tobacco Use: Cigarettes Physical Exam Vital Signs Temp Pulse Resp BP 97.5 F L 85 16 139/82 H 01/19/19 14:41 01/19/19 14:41 01/19/19 14:41 01/19/19 14:41 General: Alert, Oriented x3, Cooperative, No apparent distress HEENT: Atraumatic, TM's Clear Lungs: Clear to auscultation, Normal air movement Cardiovascular: Regular rate, Regular Rhythm Psych/Mental Status: Normal Affect, Appropriate, Alert and oriented to time, place, person, mood and affect Assessment/Plan Patient tolerated hyperbaric oxygen therapy well and will continue treatments as per his medical treatment plan for 40 total sessions.
[2019-01-22 14:59] VITALS: BP 135/86; BP 144/91; PULSE 73; PULSE 81; RESP 16; RESP 18; TEMP 36.4; TEMP 36.9
--- NOTE | 2019-01-23 14:37 | PCM.HBO.PN ---
History of Present Illness Date of Service: 01/23/19 Presenting Chief Complaint: Chronic radiation cystitis EMBER WILSON is a 58 year old currently undergoing hyperbaric oxygen therapy for radiation cystitis s/p radiation for prostate cancer. Progress: Today's hyperbaric oxygen treatment session represents the 29th session of a planned 40 sessions at our facility. Tolerance of hyperbaric oxygen therapy: Hyperbaric oxygen therapy was administered per our facility's protocol. HBO therapy was administered for 90 minutes at 2 ATMs. The patient tolerated HBO therapy well without complications or complaints. Upon emergence of the patient from the hyperbaric oxygen chamber, the patients vital signs remained stable. Past Medical History Chronic Problems Chronic radiation cystitis (Chronic) Hypertension (Chronic) Irradiation cystitis with hematuria (Chronic) Allergies/Adverse Reactions: Allergies No Known Allergies Allergy (Verified 12/27/18 11:00) Home Medications: Ambulatory Orders Medication Instructions Recorded Amlodipine [Norvasc] 10 mg PO DAILY 02/08/16 Metoprolol Succinate 50 mg PO DAILY 02/08/16 Lives: With Family Smoking Status: Former smoker Tobacco Use: Cigarettes Physical Exam Vital Signs Temp Pulse Resp BP 98.5 F 81 18 144/91 H 01/22/19 14:59 01/22/19 14:59 01/22/19 14:59 01/22/19 14:59 General: Alert, Oriented x3, Cooperative, No apparent distress HEENT: Atraumatic, TM's Clear Lungs: Clear to auscultation, Normal air movement Cardiovascular: Regular rate, Regular Rhythm Psych/Mental Status: Normal Affect, Appropriate, Alert and oriented to time, place, person, mood and affect Assessment/Plan Patient tolerated hyperbaric oxygen therapy well and will continue treatments as per his medical treatment plan for 40 total sessions.
[2019-01-23 17:24] VITALS: BP 143/90; BP 150/78; PULSE 66; PULSE 78; RESP 16; TEMP 36.5; TEMP 37.1
[2019-01-24 16:33] VITALS: BP 147/87; BP 148/90; PULSE 71; PULSE 78; RESP 16; RESP 18; TEMP 36.4; TEMP 36.7
[2019-01-25 14:28] VITALS: BP 134/86; BP 150/77; PULSE 72; PULSE 82; RESP 16; RESP 18; TEMP 36.3; TEMP 36.6
--- NOTE | 2019-01-25 17:02 | PCM.HBO.PN ---
History of Present Illness Date of Service: 01/25/19 Presenting Chief Complaint: Chronic radiation cystitis EMBER WILSON is a 58 year old currently undergoing hyperbaric oxygen therapy for radiation cystitis s/p radiation for prostate cancer. Progress: Today's hyperbaric oxygen treatment session represents the 30th session of a planned 40 sessions at our facility. Tolerance of hyperbaric oxygen therapy: Hyperbaric oxygen therapy was administered per our facility's protocol. HBO therapy was administered for 90 minutes at 2 ATMs. The patient tolerated HBO therapy well without complications or complaints. Upon emergence of the patient from the hyperbaric oxygen chamber, the patients vital signs remained stable. Past Medical History Chronic Problems Chronic radiation cystitis (Chronic) Hypertension (Chronic) Irradiation cystitis with hematuria (Chronic) Allergies/Adverse Reactions: Allergies No Known Allergies Allergy (Verified 12/27/18 11:00) Home Medications: Ambulatory Orders Medication Instructions Recorded Amlodipine [Norvasc] 10 mg PO DAILY 02/08/16 Metoprolol Succinate 50 mg PO DAILY 02/08/16 Lives: With Family Smoking Status: Former smoker Tobacco Use: Cigarettes Physical Exam Vital Signs Temp Pulse Resp BP 97.9 F 82 18 150/77 H 01/25/19 14:28 01/25/19 14:28 01/25/19 14:28 01/25/19 14:28 General: Alert, Oriented x3, Cooperative, No apparent distress HEENT: Atraumatic, PERRLA, EOMI, Normocephalic, TM's Clear, - - Bilateral tympanostomy tubes Lungs: Clear to auscultation, Normal air movement, No rhonchi, No wheeze, No rales Cardiovascular: Regular rate, Regular Rhythm Psych/Mental Status: Normal Affect, Appropriate, Alert and oriented to time, place, person, mood and affect Assessment/Plan Patient tolerated hyperbaric oxygen therapy well and will continue treatments as per his medical treatment plan for 40 total sessions.
[2019-01-26 14:47] VITALS: BP 132/75; BP 147/80; PULSE 65; PULSE 77; RESP 16; RESP 18; TEMP 36.6
--- NOTE | 2019-01-26 18:59 | PCM.HBO.PN ---
History of Present Illness Date of Service: 01/26/19 Presenting Chief Complaint: Chronic radiation cystitis EMBER WILSON is a 58 year old currently undergoing hyperbaric oxygen therapy for radiation cystitis s/p radiation for prostate cancer. Progress: Today's hyperbaric oxygen treatment session represents the 32nd session of a planned 40 sessions at our facility. Tolerance of hyperbaric oxygen therapy: Hyperbaric oxygen therapy was administered per our facility's protocol. HBO therapy was administered for 90 minutes at 2 ATMs. The patient tolerated HBO therapy well without complications or complaints. Upon emergence of the patient from the hyperbaric oxygen chamber, the patients vital signs remained stable. Past Medical History Chronic Problems Chronic radiation cystitis (Chronic) Hypertension (Chronic) Irradiation cystitis with hematuria (Chronic) Allergies/Adverse Reactions: Allergies No Known Allergies Allergy (Verified 12/27/18 11:00) Home Medications: Ambulatory Orders Medication Instructions Recorded Amlodipine [Norvasc] 10 mg PO DAILY 02/08/16 Metoprolol Succinate 50 mg PO DAILY 02/08/16 Lives: With Family Smoking Status: Former smoker Tobacco Use: Cigarettes Physical Exam Vital Signs Temp Pulse Resp BP 98 F 77 18 147/80 H 01/26/19 14:47 01/26/19 14:47 01/26/19 14:47 01/26/19 14:47 General: Alert, Oriented x3, Cooperative, No apparent distress Psych/Mental Status: Normal Affect, Appropriate Assessment/Plan Active Problems Chronic radiation cystitis (Chronic) Irradiation cystitis with hematuria (Chronic) Patient tolerated hyperbaric oxygen therapy well and will continue treatments as per his medical treatment plan for 40 total sessions.
[2019-01-29 14:34] VITALS: BP 138/88; BP 148/87; PULSE 73; PULSE 88; RESP 16; RESP 18; TEMP 36.6; TEMP 36.8
--- NOTE | 2019-01-29 15:10 | PCM.HBO.PN ---
History of Present Illness Date of Service: 01/29/19 Presenting Chief Complaint: Chronic radiation cystitis EMBER WILSON is a 58 year old currently undergoing hyperbaric oxygen therapy for radiation cystitis s/p radiation for prostate cancer. Progress: Today's hyperbaric oxygen treatment session represents the 33rd session of a planned 40 sessions at our facility. Tolerance of hyperbaric oxygen therapy: Hyperbaric oxygen therapy was administered per our facility's protocol. HBO therapy was administered for 90 minutes at 2 ATMs. The patient tolerated HBO therapy well without complications or complaints. Upon emergence of the patient from the hyperbaric oxygen chamber, the patients vital signs remained stable. Past Medical History Chronic Problems Chronic radiation cystitis (Chronic) Hypertension (Chronic) Irradiation cystitis with hematuria (Chronic) Allergies/Adverse Reactions: Allergies No Known Allergies Allergy (Verified 12/27/18 11:00) Home Medications: Ambulatory Orders Medication Instructions Recorded Amlodipine [Norvasc] 10 mg PO DAILY 02/08/16 Metoprolol Succinate 50 mg PO DAILY 02/08/16 Lives: With Family Smoking Status: Former smoker Tobacco Use: Cigarettes Physical Exam Vital Signs Temp Pulse Resp BP 98.3 F 88 18 148/87 H 01/29/19 14:34 01/29/19 14:34 01/29/19 14:34 01/29/19 14:34 General: Alert, Oriented x3, Cooperative HEENT: Atraumatic, TM's Clear Lungs: Clear to auscultation, Normal air movement Cardiovascular: Regular rate, Regular Rhythm Psych/Mental Status: Normal Affect, Appropriate, Alert and oriented to time, place, person, mood and affect Assessment/Plan Patient tolerated hyperbaric oxygen therapy well and will continue treatments as per his medical treatment plan for 40 total sessions.
--- NOTE | 2019-01-30 15:20 | PCM.HBO.PN ---
History of Present Illness Date of Service: 01/30/19 Presenting Chief Complaint: Chronic radiation cystitis EMBER WILSON is a 58 year old currently undergoing hyperbaric oxygen therapy for radiation cystitis s/p radiation for prostate cancer. Progress: Today's hyperbaric oxygen treatment session represents the 34th session of a planned 40 sessions at our facility. Tolerance of hyperbaric oxygen therapy: Hyperbaric oxygen therapy was administered per our facility's protocol. HBO therapy was administered for 90 minutes at 2 ATMs. The patient tolerated HBO therapy well without complications or complaints. Upon emergence of the patient from the hyperbaric oxygen chamber, the patients vital signs remained stable. Past Medical History Chronic Problems Chronic radiation cystitis (Chronic) Hypertension (Chronic) Irradiation cystitis with hematuria (Chronic) Allergies/Adverse Reactions: Allergies No Known Allergies Allergy (Verified 12/27/18 11:00) Home Medications: Ambulatory Orders Medication Instructions Recorded Amlodipine [Norvasc] 10 mg PO DAILY 02/08/16 Metoprolol Succinate 50 mg PO DAILY 02/08/16 Lives: With Family Smoking Status: Former smoker Tobacco Use: Cigarettes Physical Exam Vital Signs Temp Pulse Resp BP 98.3 F 88 18 148/87 H 01/29/19 14:34 01/29/19 14:34 01/29/19 14:34 01/29/19 14:34 General: Alert, Oriented x3, Cooperative, No apparent distress HEENT: Atraumatic, TM's Clear Lungs: Clear to auscultation, Normal air movement Cardiovascular: Regular rate, Regular Rhythm Psych/Mental Status: Normal Affect, Appropriate, Alert and oriented to time, place, person, mood and affect Assessment/Plan Patient tolerated hyperbaric oxygen therapy well and will continue treatments as per his medical treatment plan for 40 total sessions.
[2019-01-30 15:30] VITALS: BP 133/81; BP 144/86; PULSE 73; PULSE 81; RESP 16; TEMP 36.4; TEMP 36.7
--- NOTE | 2019-01-31 14:38 | PCM.HBO.PN ---
History of Present Illness Date of Service: 01/31/19 Presenting Chief Complaint: Chronic radiation cystitis EMBER WILSON is a 58 year old currently undergoing hyperbaric oxygen therapy for radiation cystitis s/p radiation for prostate cancer. Progress: Today's hyperbaric oxygen treatment session represents the 35th session of a planned 40 sessions at our facility. Tolerance of hyperbaric oxygen therapy: Hyperbaric oxygen therapy was administered per our facility's protocol. HBO therapy was administered for 90 minutes at 2 ATMs. The patient tolerated HBO therapy well without complications or complaints. Upon emergence of the patient from the hyperbaric oxygen chamber, the patients vital signs remained stable. Past Medical History Chronic Problems Chronic radiation cystitis (Chronic) Hypertension (Chronic) Irradiation cystitis with hematuria (Chronic) Allergies/Adverse Reactions: Allergies No Known Allergies Allergy (Verified 12/27/18 11:00) Home Medications: Ambulatory Orders Medication Instructions Recorded Amlodipine [Norvasc] 10 mg PO DAILY 02/08/16 Metoprolol Succinate 50 mg PO DAILY 02/08/16 Lives: With Family Smoking Status: Former smoker Tobacco Use: Cigarettes Physical Exam Vital Signs Temp Pulse Resp BP 97.6 F L 81 16 144/86 H 01/30/19 15:30 01/30/19 15:30 01/30/19 15:30 01/30/19 15:30 General: Alert, Oriented x3, Cooperative, No apparent distress HEENT: Atraumatic, TM's Clear Lungs: Clear to auscultation, Normal air movement Cardiovascular: Regular rate, Regular Rhythm Psych/Mental Status: Normal Affect, Appropriate, Alert and oriented to time, place, person, mood and affect Assessment/Plan Patient tolerated hyperbaric oxygen therapy well and will continue treatments as per his medical treatment plan for 40 total sessions.
[2019-01-31 14:43] VITALS: BP 131/87; BP 156/79; PULSE 75; PULSE 89; RESP 16; RESP 18; TEMP 36.9; TEMP 37.3
[2019-02-02 14:46] VITALS: BP 143/81; BP 148/84; PULSE 68; PULSE 85; RESP 16; TEMP 36.7; TEMP 36.8
--- NOTE | 2019-02-02 16:22 | PCM.HBO.PN ---
History of Present Illness Date of Service: 02/02/19 Presenting Chief Complaint: Chronic radiation cystitis EMBER WILSON is a 58 year old currently undergoing hyperbaric oxygen therapy for radiation cystitis s/p radiation for prostate cancer. Progress: Today's hyperbaric oxygen treatment session represents the 36th session of a planned 40 sessions at our facility. Tolerance of hyperbaric oxygen therapy: Hyperbaric oxygen therapy was administered per our facility's protocol. HBO therapy was administered for 90 minutes at 2 ATMs. The patient tolerated HBO therapy well without complications or complaints. Upon emergence of the patient from the hyperbaric oxygen chamber, the patients vital signs remained stable. Past Medical History Chronic Problems Chronic radiation cystitis (Chronic) Hypertension (Chronic) Irradiation cystitis with hematuria (Chronic) Allergies/Adverse Reactions: Allergies No Known Allergies Allergy (Verified 12/27/18 11:00) Home Medications: Ambulatory Orders Medication Instructions Recorded Amlodipine [Norvasc] 10 mg PO DAILY 02/08/16 Metoprolol Succinate 50 mg PO DAILY 02/08/16 Lives: With Family Smoking Status: Former smoker Tobacco Use: Cigarettes Physical Exam Vital Signs Temp Pulse Resp BP 98.0 F 85 16 148/84 H 02/02/19 14:46 02/02/19 14:46 02/02/19 14:46 02/02/19 14:46 General: Alert, Oriented x3, Cooperative, No apparent distress Psych/Mental Status: Normal Affect, Appropriate Assessment/Plan Active Problems Chronic radiation cystitis (Chronic) Irradiation cystitis with hematuria (Chronic) Patient tolerated hyperbaric oxygen therapy well and will continue treatments as per his medical treatment plan for 40 total sessions.
[2019-02-05 14:26] VITALS: BP 141/80; BP 153/85; PULSE 80; PULSE 84; RESP 16; RESP 18; TEMP 36.6; TEMP 36.8
--- NOTE | 2019-02-05 16:22 | PCM.HBO.PN ---
History of Present Illness Date of Service: 02/05/19 Presenting Chief Complaint: Chronic radiation cystitis EMBER WILSON is a 58 year old currently undergoing hyperbaric oxygen therapy for radiation cystitis s/p radiation for prostate cancer. Progress: Today's hyperbaric oxygen treatment session represents the 37th session of a planned 40 sessions at our facility. Tolerance of hyperbaric oxygen therapy: Hyperbaric oxygen therapy was administered per our facility's protocol. HBO therapy was administered for 90 minutes at 2 ATMs. The patient tolerated HBO therapy well without complications or complaints. Upon emergence of the patient from the hyperbaric oxygen chamber, the patients vital signs remained stable. Past Medical History Chronic Problems Chronic radiation cystitis (Chronic) Hypertension (Chronic) Irradiation cystitis with hematuria (Chronic) Allergies/Adverse Reactions: Allergies No Known Allergies Allergy (Verified 12/27/18 11:00) Home Medications: Ambulatory Orders Medication Instructions Recorded Amlodipine [Norvasc] 10 mg PO DAILY 02/08/16 Metoprolol Succinate 50 mg PO DAILY 02/08/16 Lives: With Family Smoking Status: Former smoker Tobacco Use: Cigarettes Physical Exam Vital Signs Temp Pulse Resp BP 97.8 F 84 18 141/80 H 02/05/19 14:26 02/05/19 14:26 02/05/19 14:26 02/05/19 14:26 General: Alert, Oriented x3, Cooperative, No apparent distress HEENT: Atraumatic, TM's Clear Lungs: Clear to auscultation, Normal air movement Cardiovascular: Regular rate, Regular Rhythm Psych/Mental Status: Normal Affect, Appropriate, Alert and oriented to time, place, person, mood and affect Assessment/Plan Active Problems Chronic radiation cystitis (Chronic) Irradiation cystitis with hematuria (Chronic) Patient tolerated hyperbaric oxygen therapy well and will continue treatments as per his medical treatment plan for 40 total sessions.
--- NOTE | 2019-02-06 15:05 | PCM.HBO.PN ---
History of Present Illness Date of Service: 02/06/19 Presenting Chief Complaint: Chronic radiation cystitis EMBER WILSON is a 58 year old currently undergoing hyperbaric oxygen therapy for radiation cystitis s/p radiation for prostate cancer. Progress: Today's hyperbaric oxygen treatment session represents the 38th session of a planned 40 sessions at our facility. Tolerance of hyperbaric oxygen therapy: Hyperbaric oxygen therapy was administered per our facility's protocol. HBO therapy was administered for 90 minutes at 2 ATMs. The patient tolerated HBO therapy well without complications or complaints. Upon emergence of the patient from the hyperbaric oxygen chamber, the patients vital signs remained stable. Past Medical History Chronic Problems Chronic radiation cystitis (Chronic) Hypertension (Chronic) Irradiation cystitis with hematuria (Chronic) Allergies/Adverse Reactions: Allergies No Known Allergies Allergy (Verified 12/27/18 11:00) Home Medications: Ambulatory Orders Medication Instructions Recorded Amlodipine [Norvasc] 10 mg PO DAILY 02/08/16 Metoprolol Succinate 50 mg PO DAILY 02/08/16 Lives: With Family Smoking Status: Former smoker Tobacco Use: Cigarettes Physical Exam Vital Signs Temp Pulse Resp BP 97.8 F 84 18 141/80 H 02/05/19 14:26 02/05/19 14:26 02/05/19 14:26 02/05/19 14:26 General: Alert, Oriented x3, Cooperative, No apparent distress HEENT: Atraumatic, TM's Clear Lungs: Clear to auscultation, Normal air movement Cardiovascular: Regular rate, Regular Rhythm Psych/Mental Status: Normal Affect, Appropriate, Alert and oriented to time, place, person, mood and affect Assessment/Plan Active Problems Chronic radiation cystitis (Chronic) Irradiation cystitis with hematuria (Chronic) Patient tolerated hyperbaric oxygen therapy well and will continue treatments as per his medical treatment plan for 40 total sessions.
[2019-02-06 15:57] VITALS: BP 134/84; BP 146/78; PULSE 64; PULSE 75; RESP 16; TEMP 36.7; TEMP 37.1
[2019-02-07 14:25] VITALS: BP 142/73; BP 146/87; PULSE 71; PULSE 77; RESP 16; RESP 18; TEMP 36.3; TEMP 36.6
--- NOTE | 2019-02-07 17:11 | PCM.HBO.PN ---
History of Present Illness Date of Service: 02/07/19 Presenting Chief Complaint: Chronic radiation cystitis EMBER WILSON is a 58 year old currently undergoing hyperbaric oxygen therapy for radiation cystitis s/p radiation for prostate cancer. Progress: Today's hyperbaric oxygen treatment session represents the 39th session of a planned 40 sessions at our facility. Tolerance of hyperbaric oxygen therapy: Hyperbaric oxygen therapy was administered per our facility's protocol. HBO therapy was administered for 90 minutes at 2 ATMs. The patient tolerated HBO therapy well without complications or complaints. Upon emergence of the patient from the hyperbaric oxygen chamber, the patients vital signs remained stable. Past Medical History Chronic Problems Chronic radiation cystitis (Chronic) Hypertension (Chronic) Irradiation cystitis with hematuria (Chronic) Allergies/Adverse Reactions: Allergies No Known Allergies Allergy (Verified 12/27/18 11:00) Home Medications: Ambulatory Orders Medication Instructions Recorded Amlodipine [Norvasc] 10 mg PO DAILY 02/08/16 Metoprolol Succinate 50 mg PO DAILY 02/08/16 Lives: With Family Smoking Status: Former smoker Tobacco Use: Cigarettes Physical Exam Vital Signs Temp Pulse Resp BP 97.4 F L 77 18 142/73 H 02/07/19 14:25 02/07/19 14:25 02/07/19 14:25 02/07/19 14:25 General: Alert, Oriented x3, Cooperative, No apparent distress HEENT: Atraumatic, PERRLA, Normocephalic, TM's Clear, - - bilateral tympanastomy tubes in place Lungs: Clear to auscultation, Normal air movement, No rhonchi, No wheeze, No rales Cardiovascular: Regular rate, Regular Rhythm Psych/Mental Status: Normal Affect, Appropriate, Alert and oriented to time, place, person, mood and affect Assessment/Plan Active Problems Chronic radiation cystitis (Chronic) Irradiation cystitis with hematuria (Chronic) Patient tolerated hyperbaric oxygen therapy well and will continue treatments as per his medical treatment plan for 40 total sessions.
== END 2019-02-10 23:59 ==
LOC: WC 14:15
PROVIDERS: Family Provider Family Medicine; PCP Family Medicine; Visit Provider Surgery
DX: N30.41 Irradiation cystitis with hematuria (principal); C61 Malignant neoplasm of prostate; I10 Essential (primary) hypertension; Z87.891 Personal history of nicotine dependence; Z79.899 Other long term (current) drug therapy
CPT/HCPCS: 99183; 99212; G0277; G0463

== ENCOUNTER 2019-02-12 13:03 | Outpatient (RCR) | payer BC, SELFPAY ==
[2019-01-18 13:35] VITALS: BMI 22.6
[2019-02-11 00:55] VITALS: BP 146/87; PULSE 71; RESP 16; TEMP 36.6
[2019-02-12 15:18] VITALS: BP 145/90; BP 151/85; PULSE 75; PULSE 87; RESP 16; RESP 18; TEMP 36.7; TEMP 37
--- NOTE | 2019-02-12 16:25 | HBO.PN.PCM_ITS ---
History of Present Illness Date of Service: 02/12/19 Presenting Chief Complaint: Chronic radiation cystitis EMBER WILSON is a 58 year old currently undergoing hyperbaric oxygen therapy for chronic radiation cystitis Progress: Today's hyperbaric oxygen therapy session represents the 40th of 40 hyperbaric oxygen treatments. Tolerance of hyperbaric oxygen therapy: Hyperbaric oxygen therapy was administered as per the facility's protocol. Patient tolerated hyperbaric oxygen therapy well, without complaints or complications. Upon emergence from the hyperbaric chamber, the patient's vital signs remained stable. He was discharged in good condition. Hyperbaric oxygen therapy was administered at 2 steph for a total of 106 minutes. There were no air breaks. Patient had no complaints relative to his ears. Myringotomy tubes had been placed early in the patient's course of hyperbaric oxygen therapy sessions. Past Medical History Chronic Problems Chronic radiation cystitis (Chronic) Hypertension (Chronic) Irradiation cystitis with hematuria (Chronic) Allergies/Adverse Reactions: Allergies No Known Allergies Allergy (Verified 12/27/18 11:00) Home Medications: Ambulatory Orders Medication Instructions Recorded Amlodipine [Norvasc] 10 mg PO DAILY 02/08/16 Metoprolol Succinate 50 mg PO DAILY 02/08/16 Smoking Status: Former smoker Tobacco Use: Cigarettes Physical Exam Vital Signs Temp Pulse Resp BP 98.6 F 87 18 145/90 H 02/12/19 15:18 02/12/19 15:18 02/12/19 15:18 02/12/19 15:18 General: Alert, Oriented x3, Cooperative, No apparent distress, Well developed, Well nourished HEENT: Atraumatic, PERRLA, EOMI, Normocephalic, TM's Clear - Left tympanic membrane was only very slightly erythematous Lungs: Normal air movement Psych/Mental Status: Normal Affect, Appropriate, Alert and oriented to time, place, person, mood and affect Assessment/Plan Patient tolerated his final hyperbaric oxygen therapy session well, treatment #4 0. He appears to have derived significant clinical benefit from his hyperbaric oxygen therapy sessions. This will be his final hyperbaric oxygen therapy session unless clinical factors change, warranting additional hyperbaric oxygen therapy treatment.
== END 2019-03-13 23:59 ==
LOC: WC 13:03
PROVIDERS: Family Provider Family Medicine; PCP Family Medicine; Visit Provider Surgery
DX: N30.40 Irradiation cystitis without hematuria (principal); Y84.2 Radiological procedure and radiotherapy as the cause of abnormal reaction of the patient, or of later complication, without mention of misadventure at the time of the procedure; I10 Essential (primary) hypertension; Z87.891 Personal history of nicotine dependence; Z79.899 Other long term (current) drug therapy
CPT/HCPCS: 99183; G0277